=== PATIENT | female | born 1950 | race Caucasian/White ===

== ENCOUNTER 2017-04-23 14:50 | Emergency (ER) | payer MEDICARE, MEDICAID ==
[~2017-04-23] VITALS: Ht 167.6 cm; Wt 51.8 kg
[~2017-04-23 14:50] MED LIST: 1-ME1LIQ PO; HYDR-3533 PO; LISI40TA PO; METH750T2 PO; NAPR500 PO; ZOFR4TAB3 SL
[2017-04-23 14:54] VITALS: BP 222/101; PULSE 68; RESP 20; TEMP 98.6; O2SAT 99
--- NOTE | 2017-04-23 15:13 | PD ---
Physical Exam Time Seen by Provider: 15:10 Narrative 66 y/o female here for evaluation of hypertension. Sent by physician. She does endorse h/a, cp and nausea. Vital signs reviewed. Seen at triage desk. Awaiting bed placement. Data Data Last Documented VS Vital Signs Date Time Temp Pulse Resp B/P Pulse Ox O2 Delivery O2 Flow Rate FiO2 04/23/17 14:54 98.6 68 20 222/101 99 Room Air [facility] Medical Record Reviewed: Yes Supervised Visit with TONEY: Minesh Schuler Apr 23, 2017 15:13
--- NOTE | 2017-04-23 16:37 | RADRPT ---
EXAM DATE/TIME: 04/23/2017 15:58 [facility] COMPARISON: CHEST SINGLE AP, September 25, 2014, 13:10. INDICATIONS : Mid chest discomfort and high blood pressure today. MEDICAL HISTORY : Hypertension. SURGICAL HISTORY : Appendectomy. Tubal ligation.Hysterectomy. ENCOUNTER: Initial ACUITY: 1 day PAIN SCORE: 2/10 LOCATION: Bilateral chest FINDINGS: A single view of the chest demonstrates the lungs to be symmetrically aerated without evidence of mas s, infiltrate or effusion. The cardiomediastinal contours are unremarkable. Osseous structures are intact. CONCLUSION: 1. No acute cardiopulmonary disease. Ifeanyi Lara MD on April 23, 2017 at 16:35 Board Certified Radiologist. This report was verified electronically.
[2017-04-23] MEDS ORDERED: ATOR40TA16 PO (17:57)
[2017-04-23] MEDS ORDERED: AMLO10 PO (17:57)
[2017-04-23] MEDS ORDERED: LISI40TA PO (17:57)
[2017-04-23 18:00] VITALS: BP 214/100; PULSE 69; RESP 17; TEMP 97.8; O2SAT 99
--- NOTE | 2017-04-23 18:01 | PD ---
HPI Chief Complaint: Hypertension Time Seen by Provider: 17:55 Travel History International Travel<30 days: No Contact w/Intl Traveler<30days: No Traveled to known affect area: No History of Present Illness HPI 58-year-old female presents to the emergency department sent by her primary care physician for hypertension. Patient states she went to her appointment today and her blood pressure was notably elevated, 220 systolic. She was instructed to come the emergency department at that time. She states that she is supposed to be on lisinopril and amlodipine. However, there was confusion at the pharmacy and she was taken off of her amlodipine approximately one month ago. Her physician sent her in a new prescription for amlodipine, but she will not pick it up until the morning. The patient states she has a mild headache. She states it is not the worse headache of her life. She reports daily headaches. Patient states that Aleve relieves her headache. Patient also states that she has a pinching in the midsternal chest when she gets hypertension, but denies any at this time. Patient denies any shortness of breath. She states that overall, she feels well. She states that she did not want to come to the emergency department, but her primary care physician told her she needed to come before she had a stroke. PFSH Past Medical History Cancer: No Cardiovascular Problems: Yes (HTN) High Cholesterol: Yes Diminished Hearing: No Endocrine: No Genitourinary: No Hypertension: Yes Immune Disorder: No Insomnia: Yes Musculoskeletal: No Neurologic: Yes Psychiatric: No Reproductive: No Respiratory: No Immunizations Current: Yes ?: Not Menopausal: Yes Past Surgical History Abdominal Surgery: Yes (APPENDECTOMY) Appendectomy: Yes Gynecologic Surgery: Yes (HYSTERECTOMY, LEFT BREAST TUMOR REMOVAL) Hysterectomy: Yes Other Surgery: Yes Social History Alcohol Use: Yes (SOMETIMES WINE) Tobacco Use: No (QUIT 10/18/12) Substance Use: No Allergies-Medications (Allergen,Severity, Reaction): Coded Allergies: Codeine (Verified Allergy, Severe, swelling, 04/23/17) Tetanus Toxoid (Verified Allergy, Severe, Anaphylaxis, 04/23/17) Uncoded Allergies: ARTIFICIAL SWEETNERS (Allergy, Severe, Anaphylaxis, 09/25/14) DIET SODA (Allergy, Severe, swollen, 04/23/17) Reported Meds & Prescriptions Reported Meds & Active Scripts Active Reported Atorvastatin (Atorvastatin Calcium) 40 Mg Tab 40 Mg PO HS Norvasc (Amlodipine Besylate) 10 Mg Tab 10 Mg PO DAILY Lisinopril 40 Mg Tab 40 Mg PO BID Review of Systems Except as stated in HPI: all other systems reviewed are Neg Physical Exam Narrative GENERAL: Well-nourished, well-developed female patient, ambulatory. Afebrile SKIN: Focused skin assessment warm/dry. HEAD: Normocephalic. Atraumatic. EYES: No scleral icterus. No injection or drainage. NECK: Supple, trachea midline. No JVD or lymphadenopathy. CARDIOVASCULAR: Regular rate and rhythm without murmurs, gallops, or rubs. RESPIRATORY: Breath sounds equal bilaterally. No accessory muscle use. Lungs sounds are clear to auscultation. GASTROINTESTINAL: Abdomen soft, non-tender, nondistended. MUSCULOSKELETAL: No cyanosis, or edema. Bilateral upper and lower extremity strength 5/5. All extremities are neurovascularly intact. BACK: Nontender without obvious deformity. No CVA tenderness. Data Data Last Documented VS Vital Signs Date Time Temp Pulse Resp B/P Pulse Ox O2 Delivery O2 Flow Rate FiO2 04/23/17 19:26 61 16 203/89 99 Room Air 04/23/17 18:00 97.8 Orders Electrocardiogram (04/23/17 15:15) Ckmb (Isoenzyme) Profile (04/23/17 15:15) Complete Blood Count With Diff (04/23/17 15:15) Comprehensive Metabolic Panel (04/23/17 15:15) Magnesium (Mg) (04/23/17 15:15) Prothrombin Time / Inr (Pt) (04/23/17 15:15) Act Partial Throm Time (Ptt) (04/23/17 15:15) Troponin I (04/23/17 15:15) Chest, Single Ap (04/23/17 15:15) Amlodipine (Norvasc) (04/23/17 18:00) CKMB (04/23/17 18:41) CKMB% (04/23/17 18:41) Labs Laboratory Tests Test 04/23/17 18:41 White Blood Count 7.8 TH/MM3 Red Blood Count 4.43 MIL/MM3 Hemoglobin 13.1 GM/DL Hematocrit 40.4 % Mean Corpuscular Volume 91.3 FL Mean Corpuscular Hemoglobin 29.6 PG Mean Corpuscular Hemoglobin 32.4 % Concent Red Cell Distribution Width 13.4 % Platelet Count 190 TH/MM3 Mean Platelet Volume 8.7 FL Neutrophils (%) (Auto) 66.8 % Lymphocytes (%) (Auto) 23.2 % Monocytes (%) (Auto) 7.8 % Eosinophils (%) (Auto) 1.8 % Basophils (%) (Auto) 0.4 % Neutrophils # (Auto) 5.2 TH/MM3 Lymphocytes # (Auto) 1.8 TH/MM3 Monocytes # (Auto) 0.6 TH/MM3 Eosinophils # (Auto) 0.1 TH/MM3 Basophils # (Auto) 0.0 TH/MM3 CBC Comment DIFF FINAL Differential Comment Prothrombin Time 10.9 SEC Prothromb Time International 1.0 RATIO Ratio Activated Partial 27.4 SEC Thromboplast Time Sodium Level 141 MEQ/L Potassium Level 3.6 MEQ/L Chloride Level 109 MEQ/L Carbon Dioxide Level 27.5 MEQ/L Anion Gap 5 MEQ/L Blood Urea Nitrogen 13 MG/DL Creatinine 0.72 MG/DL Estimat Glomerular Filtration 81 ML/MIN Rate Random Glucose 83 MG/DL Calcium Level 9.2 MG/DL Magnesium Level 2.1 MG/DL Total Bilirubin 0.4 MG/DL Aspartate Amino Transf 11 U/L (AST/SGOT) Alanine Aminotransferase 16 U/L (ALT/SGPT) Alkaline Phosphatase 95 U/L Total Creatine Kinase 106 U/L Creatine Kinase MB 1.3 NG/ML Troponin I LESS THAN 0.02 NG/ML Total Protein 7.7 GM/DL Albumin 3.8 GM/DL MDM Medical Decision Making Medical Screen Exam Complete: Yes Emergency Medical Condition: Yes Medical Record Reviewed: Yes Interpretation(s) Last Impressions Chest X-Ray 04/23/17 1515 Signed Impressions: Service Date/Time: April 15:58 - CONCLUSION: 1. No acute cardiopulmonary disease. Ifeanyi Lara MD Differential Diagnosis Hypertension versus electrolyte abnormality versus ACS Narrative Course 66-year-old female presents to the emergency department for evaluation of hypertension but she was sent by her primary care physician. She reports a chronic mild headache. She denies any chest pain at this time. Patient has been out of her amlodipine for the past month. Patient is given amlodipine 10 mg by mouth. CBC, BMP, CK, troponin, magnesium, PTT, PT/INR, chest x-ray are ordered and pending. EKG shows SR, HR 60, no acute ST changes. Chest x-ray shows no acute disease. CBC is unremarkable. BMP shows no acute abnormality. CK is 106. Troponin is less than 0.02. Magnesium is 2.1. Coags are unremarkable. Blood pressure is trending down. Blood pressure before discharge is 197/88. She has no complaints and wishes to go home. She continues to deny chest pain. She states her headache is better. Patient is instructed to take her lisinopril and amlodipine and follow-up with her primary care physician. She verbalizes agreement and understanding. The patient was discharged in stable condition with instructions, including return instructions and follow up instructions. Diagnosis Primary Impression: Hypertension Qualified Code: I10 - Essential hypertension Referrals: Primary Care Physician call for appointment Patient Instructions: Chronic Hypertension (ED), General Instructions Additional Instructions: Continue lisinopril and amlodipine as prescribed. Follow-up with your primary care physician. Return to the emergency department for any acute worsening of symptoms. Med/Other Pt SpecificInfo: No Change to Meds Disposition: 01 DISCHARGE HOME Condition: Stable Halley Finley CARMELITA Apr 23, 2017 18:01
[2017-04-23 18:59] LABS: AUTOMATED NEUTROPHIL # 5.2 TH/MM3 (1.8-7.7); BASOPHIL % 0.4 % (0.0-2.0); EOSINOPHIL # 0.1 TH/MM3 (0-0.4); EOSINOPHIL % 1.8 % (0.0-4.0); HEMATOCRIT 40.4 % (35.0-46.0); HEMO FLAGS DIFF FINAL; LYMPH % 23.2 % (9.0-44.0); LYMPHOCYTE # 1.8 TH/MM3 (1.0-4.8); MEAN CELL VOLUME 91.3 FL (80.0-100.0); MEAN CORPUSCULAR HEMOGLOBIN 29.6 PG (27.0-34.0); MEAN CORPUSCULAR HGB CONC 32.4 % (32.0-36.0); MONO % 7.8 % (0.0-8.0); NEUT % 66.8 % (16.0-70.0); PLATELET COUNT 190 TH/MM3 (150-450); RED BLOOD COUNT 4.43 MIL/MM3 (4.00-5.30); RED CELL DISTRIBUTION WIDTH 13.4 % (11.6-17.2); WHITE BLOOD COUNT 7.8 TH/MM3 (4.0-11.0)
[2017-04-23 19:14] LABS: APTT (PATIENT) 27.4 SEC (24.3-30.1); PROTHROMBIN TIME - PATIENT 10.9 SEC (9.8-11.6)
[2017-04-23 19:26] VITALS: BP 203/89; PULSE 61; RESP 16; O2SAT 99
[2017-04-23 19:43] LABS: ANION GAP 5 MEQ/L (5-15); AST (GOT) 11 U/L (15-37); BICARBONATE 27.5 MEQ/L (21.0-32.0); BLOOD UREA NITROGEN 13 MG/DL (7-18); CHLORIDE 109 MEQ/L (98-107); GLOMERULAR FILTRATION RATE 81 ML/MIN (>89); MAGNESIUM 2.1 MG/DL (1.5-2.5); POTASSIUM 3.6 MEQ/L (3.5-5.1); SODIUM (NA) 141 MEQ/L (136-145)
[2017-04-23 19:44] LABS: ALT (GPT) 16 U/L (10-53)
[2017-04-23 19:49] LABS: ALKALINE PHOSPHATASE 95 U/L (45-117); CREATINE KINASE 106 U/L (26-192); TOTAL BILIRUBIN ADULT 0.4 MG/DL (0.2-1.0)
[2017-04-23 20:01] LABS: CKMB 1.3 NG/ML (0.5-3.6)
--- NOTE | 2017-04-25 11:07 | EKG ---
Date Performed: 04/23/2017 Time Performed: 16:18:23 PTAGE: 66 years EKG: Sinus rhythm INCOMPLETE RIGHT BUNDLE BRANCH BLOCK BORDERLINE ECG PREVIOUS TRACING : 09/25/2014 12.52 DOCTOR: Jake Gordillo Interpretating Date/Time 04/25/2017 10:58:20
== END 2017-04-23 21:04 | disposition home or self-care (01) ==
LOC: NEPE 14:50
DX: I10 Essential (primary) hypertension (principal); R51 Headache; E78.00 Pure hypercholesterolemia, unspecified; Z79.899 Other long term (current) drug therapy
CPT/HCPCS: 71010; 80053; 82550; 82552; 83735; 84484; 85025; 85610; 85730; 93005; 99285

== ENCOUNTER 2017-09-27 12:44 | Inpatient (IN) | payer OTHER, MEDICARE ==
[~2017-09-27] VITALS: Ht 167.6 cm; Wt 50.0 kg
[2017-09-27] VITALS (9 sets, daily range): BP systolic 112–135; BP diastolic 56–86; PULSE 71–100; RESP 16–22; TEMP 98.7–100.7; O2SAT 96–98
[~2017-09-27 12:44] MED LIST changes: -1-ME1LIQ PO; +AMLO10 PO; +ATOR40TA16 PO; -HYDR-3533 PO; -METH750T2 PO; -NAPR500 PO; -ZOFR4TAB3 SL
--- NOTE | 2017-09-27 14:26 | PD ---
HPI Chief Complaint: Flank/Kidney Pain Time Seen by Provider: 14:10 Travel History International Travel<30 days: No Contact w/Intl Traveler<30days: No Traveled to known affect area: No History of Present Illness HPI 66-year-old female presents to the emergency department for evaluation of bilateral flank pain, fever, headache, intermittent left chest pain that started this morning. She states she not feel well yesterday, but her symptoms worsened upon wakening this morning. Patient denies any shortness of breath. She reports vomiting. No diarrhea or constipation. She denies any urinary symptoms. No dysuria, frequency, urgency. Patient does report history of nephrolithiasis, she states that she does not currently have any issues with this. Patient took Tylenol last night, but has not taken anything for fever this morning. She has history of hypertension, rheumatoid arthritis, and appendectomy. Patient rates the pain and bilateral flank area 10/10, throbbing , sharp, aching without radiation. Moderate severity. No exacerbating or alleviating factors. PFSH Past Medical History Arthritis: Yes (RA) Cancer: No Cardiovascular Problems: Yes (HTN) High Cholesterol: Yes Diminished Hearing: No Endocrine: No Genitourinary: No Hypertension: Yes Immune Disorder: No Insomnia: Yes Kidney Stones: Yes Musculoskeletal: No Neurologic: Yes Psychiatric: No Reproductive: No Respiratory: No Immunizations Current: Yes ?: Not Menopausal: Yes Past Surgical History Abdominal Surgery: Yes (APPENDECTOMY) Appendectomy: Yes Gynecologic Surgery: Yes (HYSTERECTOMY, LEFT BREAST TUMOR REMOVAL) Hysterectomy: Yes Other Surgery: Yes Family History Family Myocardial Infarction: Yes (MOTHER- CABG @ 68 - SHORTLY AFTER) Social History Alcohol Use: Yes (SOMETIMES WINE) Tobacco Use: No Substance Use: No Allergies-Medications (Allergen,Severity, Reaction): Coded Allergies: codeine (Unverified Allergy, Severe, swelling, 09/27/17) tetanus toxoid, adsorbed (Unverified Allergy, Severe, Anaphylaxis, ) Uncoded Allergies: ARTIFICIAL SWEETNERS (Allergy, Severe, Anaphylaxis, 09/25/14) DIET SODA (Allergy, Severe, swollen, 04/23/17) Reported Meds & Prescriptions Reported Meds & Active Scripts Active Reported Atorvastatin (Atorvastatin Calcium) 40 Mg Tab 40 Mg PO HS Norvasc (Amlodipine Besylate) 10 Mg Tab 10 Mg PO DAILY Lisinopril 40 Mg Tab 40 Mg PO BID Review of Systems Except as stated in HPI: all other systems reviewed are Neg Physical Exam Narrative GENERAL: Well-nourished, well-developed female patient, moaning in pain. Temp 100.4. SKIN: Focused skin assessment warm/dry. HEAD: Normocephalic. Atraumatic. ENT: Mucosa pink and moist. No erythema or exudates. No uvular edema. No uvular , palatal, or tonsillar deviation. Airway patent. Nasal turbinates appear normal without nasal blood, purulent drainage or septal hematoma. Bilateral tympanic membranes are clear without erythema or perforation. EYES: No scleral icterus. No injection or drainage. NECK: Supple, trachea midline. No JVD or lymphadenopathy. CARDIOVASCULAR: Regular rate and rhythm without murmurs, gallops, or rubs. RESPIRATORY: Breath sounds equal bilaterally. No accessory muscle use. Lungs sounds are clear to auscultation. GASTROINTESTINAL: Abdomen soft, non-tender, nondistended. No abdominal tenderness to palpation. MUSCULOSKELETAL: No cyanosis, or edema. BACK: Nontender without obvious deformity. Bilateral CVA tenderness. Data Data Last Documented VS Vital Signs Date Time Temp Pulse Resp B/P (MAP) Pulse Ox O2 Delivery O2 Flow Rate FiO2 09/27/17 14:46 16 97 Room Air 09/27/17 12:45 100.4 100 Orders Orders Electrocardiogram (09/27/17 14:16) Complete Blood Count With Diff (09/27/17 14:16) Comprehensive Metabolic Panel (09/27/17 14:16) Prothrombin Time / Inr (Pt) (09/27/17 14:16) Act Partial Throm Time (Ptt) (09/27/17 14:16) Lactic Acid Sepsis Protocol (09/27/17 14:16) Magnesium (Mg) (09/27/17 14:16) Lipase (09/27/17 14:16) Ckmb (Isoenzyme) Profile (09/27/17 14:16) Troponin I (09/27/17 14:16) Urinalysis - C+S If Indicated (09/27/17 14:16) Influenzae A/B Antigen (09/27/17 14:16) Blood Culture (09/27/17 14:16) Chest, Single Ap (09/27/17 14:16) Blood Glucose (09/27/17 14:16) Ecg Monitoring (09/27/17 14:16) Iv Access Insert/Monitor (09/27/17 14:16) Oximetry (09/27/17 14:16) Oxygen Administration (09/27/17 14:16) Ct Abd/Pel W/O Iv Contrast (09/27/17 14:16) Ketorolac Inj (Toradol Inj) (09/27/17 14:30) Sodium Chlor 0.9% 1000 Ml Inj (Ns 1000 M (09/27/17 14:30) Cath For Specimen (09/27/17 14:16) Aspirin Chew (Aspirin Chew) (09/27/17 16:45) Urine Culture (09/27/17 16:30) Ceftriaxone Inj (Rocephin Inj) (09/27/17 17:15) Morphine Inj (Morphine Inj) (09/27/17 17:15) Ondansetron Inj (Zofran Inj) (09/27/17 17:15) Admit Order (Ed Use Only) (09/27/17 17:23) Labs Laboratory Tests Test 09/27/17 14:35 09/27/17 16:30 White Blood Count 5.0 TH/MM3 Red Blood Count 4.02 MIL/MM3 Hemoglobin 12.6 GM/DL Hematocrit 36.8 % Mean Corpuscular Volume 91.5 FL Mean Corpuscular Hemoglobin 31.4 PG Mean Corpuscular Hemoglobin Concent 34.3 % Red Cell Distribution Width 13.5 % Platelet Count 163 TH/MM3 Mean Platelet Volume 8.7 FL Neutrophils (%) (Auto) 85.5 % Lymphocytes (%) (Auto) 3.4 % Monocytes (%) (Auto) 10.7 % Eosinophils (%) (Auto) 0.0 % Basophils (%) (Auto) 0.4 % Neutrophils # (Auto) 4.3 TH/MM3 Lymphocytes # (Auto) 0.2 TH/MM3 Monocytes # (Auto) 0.5 TH/MM3 Eosinophils # (Auto) 0.0 TH/MM3 Basophils # (Auto) 0.0 TH/MM3 CBC Comment DIFF FINAL Differential Comment Prothrombin Time 10.5 SEC Prothromb Time International Ratio 1.0 RATIO Activated Partial Thromboplast Time 26.3 SEC Blood Urea Nitrogen 17 MG/DL Creatinine 1.03 MG/DL Random Glucose 94 MG/DL Total Protein 7.8 GM/DL Albumin 3.7 GM/DL Calcium Level 8.9 MG/DL Magnesium Level 2.2 MG/DL Alkaline Phosphatase 78 U/L Aspartate Amino Transf (AST/SGOT) 11 U/L Alanine Aminotransferase (ALT/SGPT) 16 U/L Total Bilirubin 0.3 MG/DL Sodium Level 139 MEQ/L Potassium Level 3.8 MEQ/L Chloride Level 107 MEQ/L Carbon Dioxide Level 25.0 MEQ/L Anion Gap 7 MEQ/L Estimat Glomerular Filtration Rate 53 ML/MIN Lactic Acid Level 0.8 mmol/L Total Creatine Kinase 78 U/L Troponin I 0.06 NG/ML Lipase 124 U/L Urine Color YELLOW Urine Turbidity CLEAR Urine pH 6.5 Urine Specific [place] 1.011 Urine Protein TRACE mg/dL Urine Glucose (UA) NEG mg/dL Urine Ketones 10 mg/dL Urine Occult Blood SMALL Urine Nitrite NEG Urine Bilirubin NEG Urine Urobilinogen LESS THAN 2.0 MG/DL Urine Leukocyte Esterase LARGE Urine RBC 6 /hpf Urine WBC 27 /hpf Urine Squamous Epithelial Cells 1 /hpf Urine Mucus FEW /lpf Microscopic Urinalysis Comment CATH-CULTURE IND MDM Medical Decision Making Medical Screen Exam Complete: Yes Emergency Medical Condition: Yes Medical Record Reviewed: Yes Interpretation(s) Last Impressions Chest X-Ray 09/27/171415 Signed Impressions: Service Date/Time: Wednesday, September 27, 2017 14:25 - CONCLUSION: Normal examination. Jake Gurrola MD Abdomen/Pelvis CT [id number]/27/171415 Signed Impressions: Service Date/Time: Wednesday, September 27, 2017 16:00 - CONCLUSION: Large left renal cyst otherwise unremarkable CT scan of the abdomen and pelvis. Surgical throughout the lower retroperitoneum and pelvis. No concerning mass Jake Gurrola MD Differential Diagnosis UTI versus pyelonephritis versus pneumonia versus septic calculi versus nephrolithiasis versus influenza Narrative Course 66-year-old female presents to the emergency department for evaluation of bilateral flank pain, fever, headache. Patient also reports some left sided chest pain as well. EKG, CBC, CMP, lactic acid, magnesium, lipase, CK, troponin , PTT, PT/INR, UA, influenza, blood cultures 2 are ordered and pending. Chest x-ray and CT abdomen/pelvis without contrast are ordered and pending. Patient is given normal saline 1 L IV bolus, Toradol 30 mg IV. EKG shows SR, HR 87, no acute ST changes. CBC shows no acute abnormality. CMP shows no acute abnormality. Lipase is 124. Magnesium is 2.2. CK is 78. Troponin is 0.06. Lactic acid is 0.8. UA shows large leukocyte esterase, 27 WBC. Coags are unremarkable. Influenza is negative. Chest x-ray is normal. CT abdomen/pelvis shows a large left renal cyst, otherwise unremarkable CT scan of the abdomen and pelvis. Patient is given aspirin 162 mg by mouth due to elevated troponin. Patient is given Rocephin 1 g IV for UTI. Due to elevated troponin, atypical chest pain, patient will be admitted for further evaluation. [facility] is paged for admission. Dr. Brito accepted admission. Diagnosis Primary Impression: Atypical chest pain Additional Impressions: Elevated troponin UTI (urinary tract infection) Qualified Codes: N30.01 - Acute cystitis with hematuria Admitting Information Admitting Physician Requests: Halley Koch Sep 27, 2017 14:26
[2017-09-27] MEDS ORDERED: SODIUM CHLOR 0.9% 1000 ML INJ 1,000 ML IV ONE (14:30)
[2017-09-27] MEDS ORDERED: KETOROLAC TROMETHAMINE 30 MG/ML (IVP) VIAL IV PUSH ONE (14:30)
--- NOTE | 2017-09-27 14:48 | RADRPT ---
EXAM DATE/TIME: 09/27/2017 14:25 [facility] COMPARISON: CHEST SINGLE AP, April 23, 2017, 15:58. INDICATIONS : Fever. MEDICAL HISTORY : Hypertension. SURGICAL HISTORY : Tubal ligation. Appendectomy. ENCOUNTER: Initial ACUITY: 1 day PAIN SCORE: 0/10 LOCATION: Bilateral chest FINDINGS: A single view of the chest demonstrates the lungs to be symmetrically aerated without evidence of mas s, infiltrate or effusion. The cardiomediastinal contours are unremarkable. Osseous structures are intact. CONCLUSION: Normal examination. Jake Gurrola MD on September 27, 2017 at 14:46 Board Certified Radiologist. This report was verified electronically.
[2017-09-27 15:09] LABS: AUTOMATED NEUTROPHIL # 4.3 TH/MM3 (1.8-7.7); BASOPHIL % 0.4 % (0.0-2.0); HEMATOCRIT 36.8 % (35.0-46.0); HEMO FLAGS DIFF FINAL; LYMPH % 3.4 % (9.0-44.0); LYMPHOCYTE # 0.2 TH/MM3 (1.0-4.8); MEAN CELL VOLUME 91.5 FL (80.0-100.0); MEAN CORPUSCULAR HEMOGLOBIN 31.4 PG (27.0-34.0); MEAN CORPUSCULAR HGB CONC 34.3 % (32.0-36.0); MONO % 10.7 % (0.0-8.0); NEUT % 85.5 % (16.0-70.0); PLATELET COUNT 163 TH/MM3 (150-450); RED BLOOD COUNT 4.02 MIL/MM3 (4.00-5.30); RED CELL DISTRIBUTION WIDTH 13.5 % (11.6-17.2)
[2017-09-27 15:20] LABS: APTT (PATIENT) 26.3 SEC (24.3-30.1); PROTHROMBIN TIME - PATIENT 10.5 SEC (9.8-11.6)
[2017-09-27 15:22] LABS: ALT (GPT) 16 U/L (10-53); ANION GAP 7 MEQ/L (5-15); AST (GOT) 11 U/L (15-37); BLOOD UREA NITROGEN 17 MG/DL (7-18); CHLORIDE 107 MEQ/L (98-107); GLOMERULAR FILTRATION RATE 53 ML/MIN (>89); MAGNESIUM 2.2 MG/DL (1.5-2.5); POTASSIUM 3.8 MEQ/L (3.5-5.1); SODIUM (NA) 139 MEQ/L (136-145)
[2017-09-27 15:26] LABS: ALKALINE PHOSPHATASE 78 U/L (45-117); TOTAL BILIRUBIN ADULT 0.3 MG/DL (0.2-1.0)
[2017-09-27 15:28] LABS: CREATINE KINASE 78 U/L (26-192)
--- NOTE | 2017-09-27 16:21 | RADRPT ---
EXAM DATE/TIME: 09/27/2017 16:00 [facility] COMPARISON: CT ABDOMEN & PELVIS W/O CONTRAST, March 20, 2016, 11:29. INDICATIONS : Abdominal pain, nausea. ORAL CONTRAST: No oral contrast ingested. RADIATION DOSE: 3.13 CTDIvol (mGy) MEDICAL HISTORY : Cardiovascular disease. Hypertension. SURGICAL HISTORY : Appendectomy. Hysterectomy. ENCOUNTER: Initial ACUITY: 1 day PAIN SCALE: 7/10 LOCATION: Bilateral flank TECHNIQUE: Volumetric scanning of the abdomen and pelvis was performed. Using automated exposure control and ad justment of the mA and/or kV according to patient size, radiation dose was kept as low as reasonably achievable to obtain optimal diagnostic quality images. DICOM format image data is available electro nically for review and comparison. FINDINGS: LOWER LUNGS: The visualized lower lungs are clear. LIVER: Homogeneous density without lesion. There is no dilation of the biliary tree. No calcified gallston es. SPLEEN: Normal size without lesion. PANCREAS: Within normal limits. KIDNEYS: Normal in size and shape. There is no mass, stone, or hydronephrosis except for a large cyst upper p ole left kidney measuring 3.9 x 4.7 cm across. ADRENAL GLANDS: Within normal limits. VASCULAR: There is no aortic aneurysm. BOWEL/MESENTERY: The stomach, small bowel, and colon demonstrate no acute abnormality. There is no free intraperitone al air or fluid. ABDOMINAL WALL: Within normal limits. RETROPERITONEUM: There is no lymphadenopathy. Scattered surgical amarjit BLADDER: No wall thickening or mass. REPRODUCTIVE: Within normal limits. INGUINAL: There is no lymphadenopathy or hernia. MUSCULOSKELETAL: Within normal limits for patient age. CONCLUSION: Large left renal cyst otherwise unremarkable CT scan of the abdomen and pelvis. Surgical throughout the lower retroperitoneum and pelvis. No concerning mass Jake Gurrola MD on September 27, 2017 at 16:18 Board Certified Radiologist. This report was verified electronically.
[2017-09-27] MEDS ORDERED: ASPIRIN 81 MG CHEW TAB CHEW ONE (16:45)
[2017-09-27 17:00] LABS: BLOOD, URINE SMALL (NEG); GLUCOSE,URINE NEG (NEG); KETONE, URINE 10 mg/dL (NEG); MUCUS URINE FEW /lpf (OCC); NITRITE,URINE NEG (NEG); PH, URINE 6.5 (5.0-8.5); SQUAMOUS EPITHELIAL CELL URINE 1 /hpf (0-5); URINE COLOR YELLOW (YELLW/STRAW)
[2017-09-27 17:03] LABS: COMMENT (UR) CATH-CULTURE IND; CULTURE IF INDICATED CATH CULTURE IND
[2017-09-27] MEDS ORDERED: MORPHINE SULFATE 4 MG/ML INJ IV PUSH ONE (17:15)
[2017-09-27] MEDS ORDERED: ONDANSETRON HCL 4 MG/2 ML VIAL IV PUSH ONE (17:15)
[2017-09-27] MEDS ORDERED: cefTRIAXone INJ 1,000 MG in SODIUM CHLORIDE 0.9% INJ 100 ML IV ONE (17:15)
--- NOTE | 2017-09-27 17:53 | HHI.HP ---
[facility] G[facility] Ochoa Admission Diagnosis atypical chest pain, elevated troponin, UTI Diagnoses: Chief Complaint: chest pain Travel History International Travel<30 Days: No Contact w/Intl Traveler <30 Da: No Traveled to Known Affected Are: No History of Present Illness 66-year-old female with PMH of HTN, RA, h/o nephrolithiasis presents to the emergency department for evaluation of bilateral flank pain, fever, headache, intermittent left chest pain that started this morning. She states she not feel well yesterday, but her symptoms worsened upon wakening this morning. Chest montoya was noted early in the morning today before taking her morning meds for BP. Patient also experienced n/v/ and diaphoresis. Patient denies any shortness of breath. She reports nausea vomiting associated with chest pain. No diarrhea or constipation. She denies any urinary symptoms. No dysuria, frequency, urgency. Patient does report history of nephrolithiasis, she states that she does not currently have any issues with this. Patient took Tylenol last night, but has not taken anything for fever this morning. She has history of hypertension, rheumatoid arthritis, and appendectomy. Patient rates the pain and bilateral flank area 10/10, throbbing, sharp, aching without radiation. Moderate severity. No exacerbating or alleviating factors. Review of Systems Except as stated in HPI: all other systems reviewed are Neg Past Family Social History Past Medical History HTN, RA, nephrolithiasis Past Surgical History Appendicitis Hysterectomy Left elbow surgery Reported Medications Reported Meds & Active Scripts Active Reported Atorvastatin (Atorvastatin Calcium) 40 Mg Tab 40 Mg PO HS Norvasc (Amlodipine Besylate) 10 Mg Tab 10 Mg PO DAILY Lisinopril 40 Mg Tab 40 Mg PO BID Allergies: Coded Allergies: codeine (Unverified Allergy, Severe, swelling, 09/27/17) tetanus toxoid, adsorbed (Unverified Allergy, Severe, Anaphylaxis, ) Uncoded Allergies: ARTIFICIAL SWEETNERS (Allergy, Severe, Anaphylaxis, 09/25/14) DIET SODA (Allergy, Severe, swollen, 04/23/17) Family History Mother heart problems, CABG at age of 70 afterwards Cancer runs in fathers family Social History Tobacco 1 ppd quit 3 years ago, 15 years No EtOH or illicit drug use Physical Exam Vital Signs Vital Signs Date Time Temp Pulse Resp B/P (MAP) Pulse Ox O2 Delivery O2 Flow Rate FiO2 09/27/17 17:30 71 16 112/58 (76) 97 Nasal Cannula 2.00 09/27/17 14:46 16 97 Room Air 09/27/17 14:46 97 Room Air 09/27/17 12:45 100.4 100 18 135/63 (87) 96 Physical Exam GENERAL: This is a frail 66 well-nourished, well-developed patient, in no apparent distress. SKIN: No rashes, ecchymoses or lesions. Cool and dry. HEAD: Atraumatic. Normocephalic. No temporal or scalp tenderness. EYES: Pupils equal round and reactive. Extraocular motions intact. No scleral icterus. No injection or drainage. ENT: Nose without bleeding, purulent drainage or septal hematoma. Throat without erythema, tonsillar hypertrophy or exudate. Uvula midline. Airway patent. NECK: Trachea midline. No JVD or lymphadenopathy. Supple, nontender, no meningeal signs. CARDIOVASCULAR: Regular rate and rhythm without murmurs, gallops, or rubs. RESPIRATORY: Clear to auscultation. Breath sounds equal bilaterally. No wheezes , rales, or rhonchi. GASTROINTESTINAL: Abdomen soft, non-tender, nondistended. No hepato-splenomegaly , or palpable masses. No guarding. MUSCULOSKELETAL: Extremities without clubbing, cyanosis, or edema. No joint tenderness, effusion, or edema noted. No calf tenderness. Negative Homans sign bilaterally. NEUROLOGICAL: Awake and alert. Cranial nerves II through XII intact. Motor and sensory grossly within normal limits. Five out of 5 muscle strength in all muscle groups. Normal speech. Laboratory Laboratory Tests Test 09/27/17 14:35 09/27/17 16:30 White Blood Count 5.0 Red Blood Count 4.02 Hemoglobin 12.6 Hematocrit 36.8 Mean Corpuscular Volume 91.5 Mean Corpuscular Hemoglobin 31.4 Mean Corpuscular Hemoglobin Concent 34.3 Red Cell Distribution Width 13.5 Platelet Count 163 Mean Platelet Volume 8.7 Neutrophils (%) (Auto) 85.5 Lymphocytes (%) (Auto) 3.4 Monocytes (%) (Auto) 10.7 Eosinophils (%) (Auto) 0.0 Basophils (%) (Auto) 0.4 Neutrophils # (Auto) 4.3 Lymphocytes # (Auto) 0.2 Monocytes # (Auto) 0.5 Eosinophils # (Auto) 0.0 Basophils # (Auto) 0.0 CBC Comment DIFF FINAL Differential Comment Prothrombin Time 10.5 Prothromb Time International Ratio 1.0 Activated Partial Thromboplast Time 26.3 Blood Urea Nitrogen 17 Creatinine 1.03 Random Glucose 94 Total Protein 7.8 Albumin 3.7 Calcium Level 8.9 Magnesium Level 2.2 Alkaline Phosphatase 78 Aspartate Amino Transf (AST/SGOT) 11 Alanine Aminotransferase (ALT/SGPT) 16 Total Bilirubin 0.3 Sodium Level 139 Potassium Level 3.8 Chloride Level 107 Carbon Dioxide Level 25.0 Anion Gap 7 Estimat Glomerular Filtration Rate 53 Lactic Acid Level 0.8 Total Creatine Kinase 78 Troponin I 0.06 Lipase 124 Urine Color YELLOW Urine Turbidity CLEAR Urine pH 6.5 Urine Specific [place] 1.011 Urine Protein TRACE Urine Glucose (UA) NEG Urine Ketones 10 Urine Occult Blood SMALL Urine Nitrite NEG Urine Bilirubin NEG Urine Urobilinogen LESS THAN 2.0 Urine Leukocyte Esterase LARGE Urine RBC 6 Urine WBC 27 Urine Squamous Epithelial Cells 1 Urine Mucus FEW Microscopic Urinalysis Comment CATH-CULTURE IND Date/Time Source Procedure Growth Status 09/27/17 14:40 Blood Peripheral Aerobic Blood Culture Pending Received 09/27/17 14:40 Blood Peripheral Anaerobic Blood Culture Pending Received 09/27/17 14:34 Nasal Aspirate Influenza Types A,B Antigen (BERONICA) - Final NEGATIVE FOR FLU A AND B ANTIGEN.... Complete 09/27/17 16:30 Urine Catheterized Urine Urine Culture Pending Received Result Diagram: 09/27/17 1435 09/27/17 1435 Imaging Last Impressions Chest X-Ray 09/27/17 1416 Signed Impressions: Service Date/Time: Wednesday, September 27, 2017 14:25 - CONCLUSION: Normal examination. Jake Gurrola MD Abdomen/Pelvis CT 09/27/171415 Signed Impressions: Service Date/Time: Wednesday, September 27, 2017 16:00 - CONCLUSION: Large left renal cyst otherwise unremarkable CT scan of the abdomen and pelvis. Surgical throughout the lower retroperitoneum and pelvis. No concerning mass MD Terrie Egan VTE Risk Assessment Caprinebony VTE Risk Assessment: Mod/High Risk (score >= 2) Caprini Risk Assessment Model Point Value = 1 Point Value = 2 Point Value = 3 Point Value = 5 Age 41-60 Minor surgery BMI > 25 kg/m2 Swollen legs Varicose veins or History of unexplained or recurrent spontaneous Oral contraceptives or hormone replacement Sepsis (< 1 month) Serious lung disease, including pneumonia (< 1 month) Abnormal pulmonary function Acute myocardial infarction Congestive heart failure (< 1 month) History of inflammatory bowel disease Medical patient at bed rest Age 61-74 Arthroscopic surgery Major open surgery (> 45 min) Laparoscopic surgery (> 45 min) Malignancy Confined to bed (> 72 hours) Immobilizing plaster cast Central venous access Age >= 75 History of VTE Family history of VTE Factor V Leiden Prothrombin [id number] Lupus anticoagulant Anticardiolipin antibodies Elevated serum homocysteine Heparin-induced thrombocytopenia Other congenital or acquired thrombophilia Stroke (< 1 month) Elective arthroplasty Hip, pelvis, or leg fracture Acute spinal cord injury (< 1 month) Prophylaxis Regimen Total Risk Factor Score Risk Level Prophylaxis Regimen 0-1 Low Early ambulation 2 Moderate Order ONE of the following: *Sequential Compression Device (SCD) *Heparin 5000 units SQ BID 3-4 Higher Order ONE of the following medications: *Heparin 5000 units SQ TID *Enoxaparin/Lovenox 40 mg SQ daily (WT < 150 kg, CrCl > 30 mL/min) *Enoxaparin/Lovenox 30 mg SQ daily (WT < 150 kg, CrCl > 10-29 mL/min) *Enoxaparin/Lovenox 30 mg SQ BID (WT < 150 kg, CrCl > 30 mL/min) AND/OR *Sequential Compression Device (SCD) 5 or more Highest Order ONE of the following medications: *Heparin 5000 units SQ TID (Preferred with Epidurals) *Enoxaparin/Lovenox 40 mg SQ daily (WT < 150 kg, CrCl > 30 mL/min) *Enoxaparin/Lovenox 30 mg SQ daily (WT < 150 kg, CrCl > 10-29 mL/min) *Enoxaparin/Lovenox 30 mg SQ BID (WT < 150 kg, CrCl > 30 mL/min) AND *Sequential Compression Device (SCD) Assessment and Plan Assessment and Plan 66-year-old female presents to the emergency department for evaluation of bilateral flank pain, fever/ chills, left sided chest pain. Atypical chest pain Elevated troponin 0.06 on admission trend UTI (urinary tract infection) Moderate calorie protein malnutrition BMI of 17.8. Will order prealbumin. Encourage Po intake. Will ass ensure to diet EKG reviewed shows SR, HR 87, no acute ST changes. CT abd with large left renal cyst Urine and blood cultures are pending Received Rocephin, continue Rocephin IV Received 165 mg po ASA in the ED. Continue ASA 81 mg po. Check a1c, lipid profile. Omi trops Morphine Iv prn for pain Received bolus VS in the ED, continue IVF . Monitor VS DVT ppx SCD/TEDs/lovenox Tasha Brito MD Sep 27, 2017 17:53
[2017-09-27] MEDS ORDERED: TEMAZEPAM 15 MG CAP PO PRN (18:00)
[2017-09-27] MEDS: ENOXAPARIN SODIUM 40 MG/0.4 ML SYRINGE SQ SCH (18:00)
[2017-09-27] MEDS ORDERED: MORPHINE SULFATE 2 MG/ML INJ SQ PRN (18:00)
[2017-09-27] MEDS ORDERED: LACTULOSE SYRUP 20 GM/30 ML CUP PO PRN (18:00)
[2017-09-27] MEDS ORDERED: SODIUM CHLORIDE 0.9% FLUSH 10 ML FLUSH IV FLUSH PRN (18:00)
[2017-09-27] MEDS ORDERED: cefTRIAXone INJ 1,000 MG in SODIUM CHLORIDE 0.9% INJ 100 ML IV SCH ×2 (18:00→18:30)
[2017-09-27] MEDS ORDERED: SENNOSIDES 8.6 MG TAB PO PRN (18:00)
[2017-09-27] MEDS ORDERED: BISACODYL 10 MG SUPP RECTAL PRN (18:00)
[2017-09-27] MEDS ORDERED: NALOXONE HCL 0.4 MG/ML AMP IV PUSH PRN (18:00)
[2017-09-27] MEDS ORDERED: MAGNESIUM HYDROXIDE SUSP 30 ML CUP PO PRN (18:00)
--- NOTE | 2017-09-27 18:10 | PD ---
Data Data Last Documented VS Vital Signs Date Time Temp Pulse Resp B/P (MAP) Pulse Ox O2 Delivery O2 Flow Rate FiO2 09/27/17 14:46 16 97 Room Air 09/27/17 12:45 100.4 100 Orders Orders Electrocardiogram (09/27/17 14:16) Complete Blood Count With Diff (09/27/17 14:16) Comprehensive Metabolic Panel (09/27/17 14:16) Prothrombin Time / Inr (Pt) (09/27/17 14:16) Act Partial Throm Time (Ptt) (09/27/17 14:16) Lactic Acid Sepsis Protocol (09/27/17 14:16) Magnesium (Mg) (09/27/17 14:16) Lipase (09/27/17 14:16) Ckmb (Isoenzyme) Profile (09/27/17 14:16) Troponin I (09/27/17 14:16) Urinalysis - C+S If Indicated (09/27/17 14:16) Influenzae A/B Antigen (09/27/17 14:16) Blood Culture (09/27/17 14:16) Chest, Single Ap (09/27/17 14:16) Blood Glucose (09/27/17 14:16) Ecg Monitoring (09/27/17 14:16) Iv Access Insert/Monitor (09/27/17 14:16) Oximetry (09/27/17 14:16) Oxygen Administration (09/27/17 14:16) Ct Abd/Pel W/O Iv Contrast (09/27/17 14:16) Ketorolac Inj (Toradol Inj) (09/27/17 14:30) Sodium Chlor 0.9% 1000 Ml Inj (Ns 1000 M (09/27/17 14:30) Cath For Specimen (09/27/17 14:16) Aspirin Chew (Aspirin Chew) (09/27/17 16:45) Urine Culture (09/27/17 16:30) Ceftriaxone Inj (Rocephin Inj) (09/27/17 17:15) Morphine Inj (Morphine Inj) (09/27/17 17:15) Ondansetron Inj (Zofran Inj) (09/27/17 17:15) Admit Order (Ed Use Only) (09/27/17 17:23) Labs Laboratory Tests Test 09/27/17 14:35 09/27/17 16:30 White Blood Count 5.0 TH/MM3 Red Blood Count 4.02 MIL/MM3 Hemoglobin 12.6 GM/DL Hematocrit 36.8 % Mean Corpuscular Volume 91.5 FL Mean Corpuscular Hemoglobin 31.4 PG Mean Corpuscular Hemoglobin Concent 34.3 % Red Cell Distribution Width 13.5 % Platelet Count 163 TH/MM3 Mean Platelet Volume 8.7 FL Neutrophils (%) (Auto) 85.5 % Lymphocytes (%) (Auto) 3.4 % Monocytes (%) (Auto) 10.7 % Eosinophils (%) (Auto) 0.0 % Basophils (%) (Auto) 0.4 % Neutrophils # (Auto) 4.3 TH/MM3 Lymphocytes # (Auto) 0.2 TH/MM3 Monocytes # (Auto) 0.5 TH/MM3 Eosinophils # (Auto) 0.0 TH/MM3 Basophils # (Auto) 0.0 TH/MM3 CBC Comment DIFF FINAL Differential Comment Prothrombin Time 10.5 SEC Prothromb Time International Ratio 1.0 RATIO Activated Partial Thromboplast Time 26.3 SEC Blood Urea Nitrogen 17 MG/DL Creatinine 1.03 MG/DL Random Glucose 94 MG/DL Total Protein 7.8 GM/DL Albumin 3.7 GM/DL Calcium Level 8.9 MG/DL Magnesium Level 2.2 MG/DL Alkaline Phosphatase 78 U/L Aspartate Amino Transf (AST/SGOT) 11 U/L Alanine Aminotransferase (ALT/SGPT) 16 U/L Total Bilirubin 0.3 MG/DL Sodium Level 139 MEQ/L Potassium Level 3.8 MEQ/L Chloride Level 107 MEQ/L Carbon Dioxide Level 25.0 MEQ/L Anion Gap 7 MEQ/L Estimat Glomerular Filtration Rate 53 ML/MIN Lactic Acid Level 0.8 mmol/L Total Creatine Kinase 78 U/L Troponin I 0.06 NG/ML Lipase 124 U/L Urine Color YELLOW Urine Turbidity CLEAR Urine pH 6.5 Urine Specific [place] 1.011 Urine Protein TRACE mg/dL Urine Glucose (UA) NEG mg/dL Urine Ketones 10 mg/dL Urine Occult Blood SMALL Urine Nitrite NEG Urine Bilirubin NEG Urine Urobilinogen LESS THAN 2.0 MG/DL Urine Leukocyte Esterase LARGE Urine RBC 6 /hpf Urine WBC 27 /hpf Urine Squamous Epithelial Cells 1 /hpf Urine Mucus FEW /lpf Microscopic Urinalysis Comment CATH-CULTURE IND MDM Supervised Visit with TONEY: Yes Narrative Course The history, exam, and medical decision-making in the associated midlevel provider note were completed with my assistance. I reviewed and agree with the findings presented. I attest that I had a [id number] encounter with the patient on the same day, and personally performed and documented my assessment and findings in the medical record. *My assessment and Findings: This is a 66-year-old female who presents to the emergency department with atypical chest pain and flank pain. She has evidence of a urinary tract infection, she appears dry on exam and appears uncomfortable. She was given IV antibiotics and IV hydration. She also is having atypical chest pain and has a troponin of 0.06. Plan for observation, serial cardiac enzymes and continued antibiotic therapy. Diagnosis Primary Impression: Atypical chest pain Additional Impressions: Elevated troponin UTI (urinary tract infection) Qualified Codes: N30.01 - Acute cystitis with hematuria Admitting Information Admitting Physician Requests: Observation Ema Jeffries MD Sep 27, 2017 18:10
[2017-09-27] MEDS ORDERED: NON-FORMULARY DRUG (Lisinopril 40 MG) PO SCH (21:00)
[2017-09-27] MEDS: DOCUSATE SODIUM 50 MG/SENNA 8.6 MG TAB PO SCH (21:32)
[2017-09-27] MEDS: SODIUM CHLORIDE 0.9% FLUSH 10 ML FLUSH IV FLUSH SCH (21:32)
[2017-09-27] MEDS: LISINOPRIL 20 MG TAB PO SCH (21:33)
[2017-09-27] MEDS: SODIUM CHLOR 0.9% 1000 ML INJ 1,000 ML IV SCH (21:37)
[2017-09-27] MEDS: ONDANSETRON HCL 4 MG/2 ML VIAL IVP PRN (22:31)
[2017-09-27] MEDS: ACETAMINOPHEN 325 MG TAB PO PRN (23:02)
[2017-09-27] MEDS: MORPHINE SULFATE 2 MG/ML INJ IV PUSH PRN (23:03)
[2017-09-28] VITALS (11 sets, daily range): BP systolic 131–161; BP diastolic 63–75; PULSE 68–93; RESP 18–22; TEMP 98.4–102.4; O2SAT 91–97
[2017-09-28] MEDS: ACETAMINOPHEN 325 MG TAB PO PRN ×3 (03:39→17:19)
[2017-09-28] MEDS: MORPHINE SULFATE 2 MG/ML INJ IV PUSH PRN ×2 (03:40→17:20)
[2017-09-28 05:57] LABS: AUTOMATED NEUTROPHIL # 2.7 TH/MM3 (1.8-7.7); BASOPHIL % 0.5 % (0.0-2.0); EOSINOPHIL % 0.1 % (0.0-4.0); HEMATOCRIT 32.2 % (35.0-46.0); HEMO FLAGS DIFF FINAL; LYMPH % 10.6 % (9.0-44.0); LYMPHOCYTE # 0.4 TH/MM3 (1.0-4.8); MEAN CELL VOLUME 90.9 FL (80.0-100.0); MEAN CORPUSCULAR HEMOGLOBIN 30.7 PG (27.0-34.0); MEAN CORPUSCULAR HGB CONC 33.7 % (32.0-36.0); MONO % 8.9 % (0.0-8.0); NEUT % 79.9 % (16.0-70.0); PLATELET COUNT 137 TH/MM3 (150-450); RED BLOOD COUNT 3.54 MIL/MM3 (4.00-5.30); RED CELL DISTRIBUTION WIDTH 13.5 % (11.6-17.2); WHITE BLOOD COUNT 3.4 TH/MM3 (4.0-11.0)
[2017-09-28 06:14] LABS: BICARBONATE 25.6 MEQ/L (21.0-32.0); POTASSIUM 4.3 MEQ/L (3.5-5.1)
[2017-09-28] MEDS: DOCUSATE SODIUM 50 MG/SENNA 8.6 MG TAB PO SCH ×2 (08:28→20:39)
[2017-09-28] MEDS: LISINOPRIL 20 MG TAB PO SCH ×2 (08:29→20:39)
[2017-09-28] MEDS: SODIUM CHLOR 0.9% 1000 ML INJ 1,000 ML IV SCH ×2 (08:55→18:37)
[2017-09-28] MEDS: SODIUM CHLORIDE 0.9% FLUSH 10 ML FLUSH IV FLUSH SCH ×2 (09:00→20:39)
--- NOTE | 2017-09-28 10:21 | HHI.PR ---
Subjective Remarks Follow-up for bilateral flank plain and UTI Patient continues have fever. Fever last night 101.5. Her sister is at the bedside during the interview. Per patient and her sister patient is getting worse and does not look better. She continues to complain of bilateral flank pain radiating to her corn area. Patient stated that she had the left renal cysts in the past and she was told about this 10 months ago. Deny any nausea or vomiting. Patient stated that pain is controlled with the morphine. She denies any chest pain. Objective Vitals Vital Signs Date Time Temp Pulse Resp B/P (MAP) Pulse Ox O2 Delivery O2 Flow Rate FiO2 09/28/17 08:00 100.9 93 22 161/67 (98) 91 09/28/17 06:17 99.5 09/28/17 04:15 80 09/28/17 04:08 101.5 89 22 141/75 (97) 97 09/28/17 02:08 99.3 09/28/17 00:19 72 09/27/17 23:39 100.7 79 22 116/56 (76) 96 09/27/17 22:55 100.6 09/27/17 22:55 Nasal Cannula 2.00 09/27/17 21:35 72 09/27/17 20:01 98.7 75 22 117/56 (76) 96 09/27/17 19:47 81 16 118/86 (97) 98 2.00 09/27/17 18:25 98 Nasal Cannula 3.00 09/27/17 17:30 71 16 112/58 (76) 97 Nasal Cannula 2.00 09/27/17 14:46 16 97 Room Air 09/27/17 14:46 97 Room Air 09/27/17 12:45 100.4 100 18 135/63 (87) 96 I/O 09/27/17 09/27/17 09/27/17 09/28/17 09/28/17 09/28/17 06:59 14:59 22:59 06:59 14:59 22:59 Intake Total 1100 ml 840 ml Balance 1100 ml 840 ml Intake Oral 840 ml IV Total 1100 ml Result Diagram: 09/28/17 0526 09/28/17 05 Imaging Last Impressions Chest X-Ray 09/27/17 1416 Signed Impressions: Service Date/Time: Wednesday, September 27, 2017 14:25 - CONCLUSION: Normal examination. Jake Gurrola MD Abdomen/Pelvis CT 09/27/17 1416 Signed Impressions: Service Date/Time: Wednesday, September 27, 2017 16:00 - CONCLUSION: Large left renal cyst otherwise unremarkable CT scan of the abdomen and pelvis. Surgical throughout the lower retroperitoneum and pelvis. No concerning mass Jake Gurrola MD Objective Remarks GENERAL: In no acute distress but does look ill SKIN: Warm and dry. HEAD: Normocephalic. EYES: No scleral icterus. No injection or drainage. NECK: Supple, trachea midline. No JVD or lymphadenopathy. CARDIOVASCULAR: Regular rate and rhythm without murmurs, gallops, or rubs. RESPIRATORY: Breath sounds equal bilaterally. No accessory muscle use. GASTROINTESTINAL: Bilateral flank pain. Also lower abdominal pain more on the left side versus the right. Negative for any peritoneal signs. Nondistended. Medications and IVs Current Medications Ketorolac Tromethamine (Toradol Inj) 30 mg ONCE ONCE IV PUSH Last administered on 09/27/17 14:30; Start 09/27/17 at 14:30; Stop 09/27/17 at 14 :31; Status DC Sodium Chloride 1,000 ml @ 999 mls/hr BOLUS ONCE IV Last administered on 14:30; Start 09/27/17 at 14:30; Stop 09/27/17 at 15:30; Status DC Aspirin (Aspirin Chew) 162 mg ONCE ONCE CHEW Last administered on 09/27/17 16:45; Start 09/27/17 at 16:45; Stop 09/27/17 at 16:46; Status DC Ceftriaxone Sodium 1000 mg/ Sodium Chloride 100 ml @ 200 mls/hr ONCE ONCE IV Last administered on 09/27/17 17:29; Start 09/27/17 at 17:15; Stop 09/27/17 at 17:44; Status DC Morphine Sulfate (Morphine Inj) 4 mg ONCE ONCE IV PUSH Last administered on 17:29; Start 09/27/17 at 17:15; Stop 09/27/17 at 17:16; Status DC Ondansetron HCl (Zofran Inj) 4 mg ONCE ONCE IV PUSH Last administered on 09/27 17:29; Start 09/27/17 at 17:15; Stop 09/27/17 at 17:16; Status DC Amlodipine Besylate (Norvasc) 10 mg DAILY PO Last administered on 09/28/17 08 :28; Start 09/28/17 at 09:00 Non-Formulary Medication 40 mg BID PO ; Start 09/27/17 at 21:00; Status UNV Sodium Chloride (NS Flush) 2 ml UNSCH PRN IV FLUSH FLUSH AFTER USING IV ACCESS ; Start 09/27/17 at 18:00 Sodium Chloride (NS Flush) 2 ml BID IV FLUSH Last administered on 09/27/17 21 :32; Start 09/27/17 at 21:00 Acetaminophen (Tylenol) 650 mg Q4H PRN PO TEMP > 100.4 Last administered on 08:29; Start 09/27/17 at 18:00 Ondansetron HCl (Zofran Inj) 4 mg Q6H PRN IVP NAUSEA OR VOMITING Last administered on 09/27/17 22:31; Start 09/27/17 at 18:00 Temazepam (Restoril) 15 mg HS PRN PO INSOMNIA Last administered on 09/27/17 21:32; Start 09/27/17 at 18:00 Enoxaparin Sodium (Lovenox Inj) 40 mg Q24H SQ Last administered on 09/27/17 18:00; Start 09/27/17 at 18:00 Naloxone HCl (Narcan Inj) 0.4 mg UNSCH PRN IV PUSH SEE LABEL COMMENTS; Start 09/27/17 at 18:00 Senna/Docusate Sodium (Rozina-Colace) 1 tab BID PO Last administered on 08:28; Start 09/27/17 at 21:00 Magnesium Hydroxide (Milk Of Magnesia Liq) 30 ml Q12H PRN PO Mild constipation ; Start 09/27/17 at 18:00 Sennosides (Senokot) 17.2 mg Q12H PRN PO Moderate constipation; Start at 18:00 Bisacodyl (Dulcolax Supp) 10 mg DAILY PRN RECTAL SEVERE CONSITIPATION; Start 09/27/17 at 18:00 Lactulose (Lactulose Liq) 30 ml DAILY PRN PO SEVERE CONSITIPATION; Start 09/27 at 18:00 Ceftriaxone Sodium 1000 mg/ Sodium Chloride 100 ml @ 200 mls/hr Q24H IV ; Start 09/27/17 at 18:00; Status Cancel Morphine Sulfate (Morphine Inj) 2 mg Q4H PRN SQ pain 2-10; Start 09/27/17 at 18:00; Stop 09/27/17 at 22:57; Status DC Ceftriaxone Sodium 1000 mg/ Sodium Chloride 100 ml @ 200 mls/hr Q24H IV ; Start 09/27/17 at 18:30; Status Cancel Ceftriaxone Sodium 1000 mg/ Sodium Chloride 100 ml @ 200 mls/hr Q24H IV ; Start 09/28/17 at 18:00; Stop 09/28/17 at 18:00; Status DC Lisinopril (Prinivil) 40 mg BID PO Last administered on 09/28/17 08:29; Start 09/27/17 at 21:00 Sodium Chloride 1,000 ml @ 84 mls/hr [id number] IV Last administered on 21:37; Start 09/27/17 at 21:00 Morphine Sulfate (Morphine Inj) 2 mg Q4H PRN IV PUSH pain 2-10 Last administered on 09/28/17t 03:40; Start 09/28/17 at 02:00 Ceftriaxone Sodium 2000 mg/ Sodium Chloride 100 ml @ 200 mls/hr Q24H IV ; Start 09/28/17 at 18:00; Status UNV A/P Assessment and Plan 66-year-old female who presented with severe bilateral flank pain radiating to the abdomen and fevers Concerning for pyelonephritis -UA +, continues to spike fever, severe bilateral flank pain. CT scan of the abdomen/pelvis significant for large left renal cyst. -Will get renal ultrasound. Increase Rocephin to 2 g IV daily since symptoms are not improving. Pending urine and blood cultures. -Consult infectious disease. Atypical chest pain, resolved. -During my interview she complained of CVA tenderness not chest pain. EKG reviewed showed no acute ST changes. -Troponins are mildly elevated. Will get another troponin to monitor trend. -Patient on aspirin. Pending hemoglobin A1c and lipid profile. DVT prophylaxis -On Lovenox. Discharge Planning Concerning for pyelonephritis. She continues to spike fever and looks ill. Symptoms are not improving. Patient will need to be admitted to the hospital as inpatient status for continual aggressive treatment. She may require 2-3 more days of hospitalization depending on her clinical course. Lovely Davis MD Sep 28, 2017 10:21
--- NOTE | 2017-09-28 11:12 | RADRPT ---
EXAM DATE/TIME: 09/28/2017 10:50 [facility] COMPARISON: CT ABDOMEN & PELVIS W/O CONTRAST, September 27, 2017, 16:00. [facility] [place] [facility], May 13, 2017 INDICATIONS : Flank pain. MEDICAL HISTORY : Hypercholesterolemia. Renal calculi. Arthritis. Right cataract. HTN. Hyperlipidemia. Sleep apnea. Rhe umatiod arthritis. Osteoarthritis. Insomnia. Depression. Anxiety. SURGICAL HISTORY : Appendectomy. Hysterectomy. Tubal ligation. Breast biopsy. Left breast tumor removal. Left elbow lanny keri. Blood transfusions. ENCOUNTER: Initial ACUITY: 1 day PAIN SCORE: 6/10 LOCATION: Bilateral flank MEASUREMENTS: RIGHT KIDNEY: 12.3 x 5.1 x 5.8 cm LEFT KIDNEY: 12.2 x 6.0 x 5.3 cm FINDINGS: RIGHT KIDNEY: Renal cortex is normal in thickness and echotexture. No hydronephrosis, stone, or mass. LEFT KIDNEY: Renal cortex is normal in thickness and echotexture. No hydronephrosis, stone, or mass. Low density area identified in the hilum the left kidney corresponds to a 4.8 x 5.0 x 4.6 cm parapelvic cyst. BLADDER: Within normal limits given the degree of distension. CONCLUSION: 1. 5 cm parapelvic cyst in the left kidney. 2. Otherwise negative. No hydronephrosis. Chuck Winslow MD on September 28, 2017 at 11:08 Board Certified Radiologist. This report was verified electronically.
--- NOTE | 2017-09-28 14:20 | PD.CONS ---
History of Present Illness Service Infectious Disease Consult Requested By Dr Bia uribe Reason for Consult Evaluate patient with fevers and bilateral flank pain Primary Care Physician Latoya Carson [employer] Diagnoses: History of Present Illness Patient seen and examined. Records reviewed. Patient is a 66-year-old female, presented to the hospital with 1 day history of bilateral flank pain that goes into the front. She started having fevers and headaches. Denies any sore complaint, sore throat. He's had some nausea and vomiting. Denies any diarrhea. She did have some dysuria, but no frequency or urgency or hematuria. Patient stated she has had prior history of kidney stones and she passed the stone spontaneously. She has not had any urological intervention done. Since admission she's been febrile. CT of the abdomen and pelvis did not show any hydronephrosis, but it did show a left renal cyst. Urinalysis showed some mild pyuria. Blood cultures are negative so far and urine culture is pending. Influenza testing is negative. Chest x- rays normal. Renal ultrasound did not show any hydronephrosis. Patient currently is on cefepime. Infectious disease consultation has been requested to evaluate the patient with fever and bilateral flank pain. Review of Systems Constitutional: COMPLAINS OF: Fever, Chills Eyes: DENIES: Eye pain Ears, nose, mouth, throat: DENIES: Oral lesions, Throat pain, Ear Pain, Sinus Pain Respiratory: DENIES: Cough, Shortness of breath Cardiovascular: DENIES: Chest pain, Palpitations, Dyspnea on Exertion Gastrointestinal: COMPLAINS OF: Abdominal pain, Nausea, Vomiting, DENIES: Diarrhea, Difficulty Swallowing Genitourinary: COMPLAINS OF: Dysuria, DENIES: Urgency, Hematuria Musculoskeletal: COMPLAINS OF: Back pain, Neck pain Integumentary: DENIES: Rash Neurologic: COMPLAINS OF: Headache, DENIES: Localized weakness Psychiatric: DENIES: Hallucinations Past Family Social History Allergies: Coded Allergies: codeine (Unverified Allergy, Severe, swelling, 09/27/17) tetanus toxoid, adsorbed (Unverified Allergy, Severe, Anaphylaxis, ) Uncoded Allergies: ARTIFICIAL SWEETNERS (Allergy, Severe, Anaphylaxis, 09/25/14) DIET SODA (Allergy, Severe, swollen, 04/23/17) Past Medical History Hypertension RA Nephrolithiasis Past Surgical History Appendicitis Hysterectomy Left elbow surgery Reported Medications Reported Meds & Active Scripts Active Reported Atorvastatin (Atorvastatin Calcium) 40 Mg Tab 40 Mg PO HS Norvasc (Amlodipine Besylate) 10 Mg Tab 10 Mg PO DAILY Lisinopril 40 Mg Tab 40 Mg PO BID Active Ordered Medications Current Medications Medications (Trade) Dose Ordered Sig/Tania Route Start Time Stop Time Status Last Admin (Norvasc) 10 mg DAILY PO 09/28/17 09:00 09/28/17 08:28 (NS Flush) 2 ml UNSCH PRN IV FLUSH 09/27/17 18:00 (NS Flush) 2 ml BID IV FLUSH 09/27/17 21:00 09/27/17 21:32 (Tylenol) 650 mg Q4H PRN PO 09/27/17 18:00 09/28/17 08:29 (Zofran Inj) 4 mg Q6H PRN IVP 09/27/17 18:00 09/27/17 22:31 (Restoril) 15 mg HS PRN PO 09/27/17 18:00 09/27/17 21:32 (Lovenox Inj) 40 mg Q24H SQ 09/27/17 18:00 09/27/17 18:00 (Narcan Inj) 0.4 mg UNSCH PRN IV PUSH 09/27/17 18:00 (Rozina-Colace) 1 tab BID PO 09/27/17 21:00 09/28/17 08:28 (Milk Of Magnesia Liq) 30 ml Q12H PRN PO 09/27/17 18:00 (Senokot) 17.2 mg Q12H PRN PO 09/27/17 18:00 (Dulcolax Supp) 10 mg DAILY PRN RECTAL 09/27/17 18:00 (Lactulose Liq) 30 ml DAILY PRN PO 09/27/17 18:00 (Prinivil) 40 mg BID PO 09/27/17 21:00 09/28/17 08:29 Sodium Chloride 1,000 ml @ 84 mls/hr [id number] IV 09/27/17 21:00 09/27/17 21:37 (Morphine Inj) 2 mg Q4H PRN IV PUSH 09/28/17 02:00 09/28/17 03:40 Ceftriaxone Sodium 2000 mg/ Sodium Chloride 100 ml @ 200 mls/hr Q24H IV 09/28/17 18:00 Family History Noncontributory Social History Tobacco 1 ppd quit 3 years ago, 15 years No EtOH denies illicit drug use Physical Exam Vital Signs Vital Signs Date Time Temp Pulse Resp B/P (MAP) Pulse Ox O2 Delivery O2 Flow Rate FiO2 09/28/17 12:29 100.7 78 20 141/63 (89) 95 09/28/17 08:00 100.9 93 22 161/67 (98) 91 09/28/17 06:17 99.5 09/28/17 04:15 80 09/28/17 04:08 101.5 89 22 141/75 (97) 97 09/28/17 02:08 99.3 09/28/17 00:19 72 09/27/17 23:39 100.7 79 22 116/56 (76) 96 09/27/17 22:55 100.6 09/27/17 22:55 Nasal Cannula 2.00 09/27/17 21:35 72 09/27/17 20:01 98.7 75 22 117/56 (76) 96 09/27/17 19:47 81 16 118/86 (97) 98 2.00 09/27/17 18:25 98 Nasal Cannula 3.00 09/27/17 17:30 71 16 112/58 (76) 97 Nasal Cannula 2.00 09/27/17 14:46 16 97 Room Air 09/27/17 14:46 97 Room Air Physical Exam GENERAL: Patient is a well-nourished, well-developed female, awake and alert , not in respiratory distress. SKIN: Warm and dry. No generalized rash, no ecchymoses and no evidence of embolic lesions. HEAD: Atraumatic. Normocephalic. No temporal wasting, or tenderness. EYES: [place] conjunctiva. No petechia or hemorrhage. Pupils equal, round and reactive to light. Extraocular movements full and intact. No scleral icterus. No injection or drainage. EARS, NOSE AND THROAT: Nose without bleeding or purulent nasal discharge. No sinus tenderness. Mucous membranes pink and moist. No oral lesions noted. No exudate. No oral thrush. NECK: Trachea midline. Supple and not tender, no meningeal signs CARDIOVASCULAR: Regular rate and rhythm. No murmurs, rubs or gallops heard RESPIRATORY: Clear to auscultation. Breath sounds equal bilaterally. No rales , wheezing or rhonchi ABDOMEN: Soft, nondistended, has mild tenderness on the right side, no guarding or rebound. Bowel sounds present and normoactive. No organomegaly. BACK: No spine tenderness, has bilateral CVA tenderness, worse on L than on R EXTREMITIES: No clubbing, cyanosis, or edema. No joint effusion, has good ROM. No calf tenderness. Well perfused and warm. NEUROLOGICAL: Awake and alert. Cranial nerves grossly intact. Motor grossly within normal limits. PSYCHIATRIC: Normal affect, calm and cooperative. LINE: No evidence of infection Laboratory Laboratory Tests Test 09/27/17 14:35 09/27/17 16:30 09/27/17 23:20 09/28/17 05:26 White Blood Count 5.0 3.4 Red Blood Count 4.02 3.54 Hemoglobin 12.6 10.9 Hematocrit 36.8 32.2 Mean Corpuscular Volume 91.5 90.9 Mean Corpuscular Hemoglobin 31.4 30.7 Mean Corpuscular Hemoglobin Concent 34.3 33.7 Red Cell Distribution Width 13.5 13.5 Platelet Count 163 137 Mean Platelet Volume 8.7 8.7 Neutrophils (%) (Auto) 85.5 79.9 Lymphocytes (%) (Auto) 3.4 10.6 Monocytes (%) (Auto) 10.7 8.9 Eosinophils (%) (Auto) 0.0 0.1 Basophils (%) (Auto) 0.4 0.5 Neutrophils # (Auto) 4.3 2.7 Lymphocytes # (Auto) 0.2 0.4 Monocytes # (Auto) 0.5 0.3 Eosinophils # (Auto) 0.0 0.0 Basophils # (Auto) 0.0 0.0 CBC Comment DIFF FINAL DIFF FINAL Differential Comment Prothrombin Time 10.5 Prothromb Time International Ratio 1.0 Activated Partial Thromboplast Time 26.3 Blood Urea Nitrogen 17 14 Creatinine 1.03 0.84 Random Glucose 94 110 Total Protein 7.8 Albumin 3.7 Calcium Level 8.9 8.3 Magnesium Level 2.2 Alkaline Phosphatase 78 Aspartate Amino Transf (AST/SGOT) 11 Alanine Aminotransferase (ALT/SGPT) 16 Total Bilirubin 0.3 Sodium Level 139 138 Potassium Level 3.8 4.3 Chloride Level 107 107 Carbon Dioxide Level 25.0 25.6 Anion Gap 7 5 Estimat Glomerular Filtration Rate 53 67 Lactic Acid Level 0.8 Total Creatine Kinase 78 Troponin I 0.06 0.09 0.10 Lipase 124 Urine Color YELLOW Urine Turbidity CLEAR Urine pH 6.5 Urine Specific [place] 1.011 Urine Protein TRACE Urine Glucose (UA) NEG Urine Ketones 10 Urine Occult Blood SMALL Urine Nitrite NEG Urine Bilirubin NEG Urine Urobilinogen LESS THAN 2.0 Urine Leukocyte Esterase LARGE Urine RBC 6 Urine WBC 27 Urine Squamous Epithelial Cells 1 Urine Mucus FEW Microscopic Urinalysis Comment CATH-CULTURE IND Prealbumin 16 Date/Time Source Procedure Growth Status 09/27/17 14:40 Blood Peripheral Aerobic Blood Culture - Preliminary NO GROWTH IN 1 DAY Resulted 09/27/17 14:40 Blood Peripheral Anaerobic Blood Culture - Preliminary NO GROWTH IN 1 DAY Resulted 09/27/17 14:34 Nasal Aspirate Influenza Types A,B Antigen (BERONICA) - Final NEGATIVE FOR FLU A AND B ANTIGEN.... Complete 09/27/17 16:30 Urine Catheterized Urine Urine Culture - Preliminary IMMATURE GROWTH - REINCUBATE Resulted Result Diagram: 09/28/17 0526 09/28/17 0526 Imaging RADIOLOGY STUDIES/FILMS REVIEWED Renal Ultrasound 09/28/17 0000 Signed Impressions: Service Date/Time: Thursday, September 28, 2017 10:50 - CONCLUSION: 1. 5 cm parapelvic cyst in the left kidney. 2. Otherwise negative. No hydronephrosis. Chuck Winslow MD Chest X-Ray [id number] Signed Impressions: Service Date/Time: Wednesday, September 27, 2017 14:25 - CONCLUSION: Normal examination. Jake Gurrola MD Abdomen/Pelvis CT [id number] Signed Impressions: Service Date/Time: Wednesday, September 27, 2017 16:00 - CONCLUSION: Large left renal cyst otherwise unremarkable CT scan of the abdomen and pelvis. Surgical throughout the lower retroperitoneum and pelvis. No concerning mass Jake Gurrola MD Assessment and Plan Assessment and Plan IMPRESSION Febrile illness, with ne flank pain, (+) UA, likely - no hydro on CT, but has the cyst L kidney - no stone seen Neutropenia due to sepsis Hx kidney stones, none seen on imaging studies RECOMMENDATION IV Zosyn Stop Rocephin Follow C/S Follow CBC Follow temps Monitor progress I will follow along with you Thank you for this consultation Discussed Condition With Explained plan to patient Elda Dowd MD Sep 28, 2017 14:20
[2017-09-28] MEDS: ENOXAPARIN SODIUM 40 MG/0.4 ML SYRINGE SQ SCH (17:19)
[2017-09-28] MEDS: ONDANSETRON HCL 4 MG/2 ML VIAL IVP PRN (17:29)
[2017-09-28] MEDS ORDERED: cefTRIAXone INJ 2,000 MG in SODIUM CHLORIDE 0.9% INJ 100 ML IV SCH (18:00)
[2017-09-28] MEDS ORDERED: cefTRIAXone INJ 1,000 MG in SODIUM CHLORIDE 0.9% INJ 100 ML IV SCH (18:00)
--- NOTE | 2017-09-28 18:03 | EKG ---
Date Performed: 09/27/2017 Time Performed: 14:49:51 PTAGE: 66 years EKG: Sinus rhythm POSSIBLE RIGHT VENTRICULAR CONDUCTION DELAY NONSPECIFIC T-WAVE ABNORMALITY Since previous tracing, n o significant change noted BORDERLINE ECG PREVIOUS TRACING : 04/23/2017 16.18 DOCTOR: Landen Silverman Interpretating Date/Time 09/28/2017 18:02:59
--- NOTE | 2017-09-28 18:04 | EKG ---
Date Performed: 09/27/2017 Time Performed: 23:43:37 PTAGE: 66 years EKG: Sinus rhythm INCOMPLETE RIGHT BUNDLE BRANCH BLOCK NONSPECIFIC T-WAVE ABNORMALITY Since previous tracing, no signi ficant change noted BORDERLINE ECG PREVIOUS TRACING : 09/27/2017 20.44 DOCTOR: Landen Silverman Interpretating Date/Time 09/28/2017 18:04:19
--- NOTE | 2017-09-28 18:04 | EKG ---
Date Performed: 09/27/2017 Time Performed: 20:44:44 PTAGE: 66 years EKG: Sinus rhythm NONSPECIFIC T-WAVE ABNORMALITY Since previous tracing, no significant change noted BORDERLINE ECG PREVIOUS TRACING : 09/27/2017 14.49 DOCTOR: Landen Silverman Interpretating Date/Time 09/28/2017 18:03:55
[2017-09-29] VITALS (10 sets, daily range): BP systolic 117–157; BP diastolic 57–70; PULSE 60–83; RESP 17–20; TEMP 96.3–100.4; O2SAT 94–98
[2017-09-29] MEDS: ACETAMINOPHEN 325 MG TAB PO PRN (04:20)
[2017-09-29 06:17] LABS: HEMATOCRIT 33.9 % (35.0-46.0); MEAN CELL VOLUME 90.7 FL (80.0-100.0); MEAN CORPUSCULAR HEMOGLOBIN 31.4 PG (27.0-34.0); MEAN CORPUSCULAR HGB CONC 34.6 % (32.0-36.0); PLATELET COUNT 140 TH/MM3 (150-450); RED BLOOD COUNT 3.74 MIL/MM3 (4.00-5.30); RED CELL DISTRIBUTION WIDTH 13.9 % (11.6-17.2); REVIEW FLAG FINAL; WHITE BLOOD COUNT 2.6 TH/MM3 (4.0-11.0)
[2017-09-29 06:45] LABS: BICARBONATE 23.9 MEQ/L (21.0-32.0); POTASSIUM 3.6 MEQ/L (3.5-5.1)
[2017-09-29] MEDS: DOCUSATE SODIUM 50 MG/SENNA 8.6 MG TAB PO SCH ×2 (09:44→21:00)
[2017-09-29] MEDS: LISINOPRIL 20 MG TAB PO SCH ×2 (09:44→21:14)
[2017-09-29] MEDS: SODIUM CHLORIDE 0.9% FLUSH 10 ML FLUSH IV FLUSH SCH ×2 (09:44→21:00)
[2017-09-29] MEDS: SODIUM CHLOR 0.9% 1000 ML INJ 1,000 ML IV SCH ×2 (09:45→21:15)
--- NOTE | 2017-09-29 11:47 | HHI.PR ---
Subjective Remarks Follow-up for infection and fever Patient states she feels a lot better. Fevers improved. She stated that her bilateral CVA pain resolved. Her sisters at the bedside. No other complaints. Objective Vitals Vital Signs Date Time Temp Pulse Resp B/P (MAP) Pulse Ox O2 Delivery O2 Flow Rate FiO2 09/29/17 08:10 96.3 60 20 132/60 (84) 96 09/29/17 05:20 18 09/29/17 04:14 100.4 83 17 140/63 (88) 98 09/29/17 03:46 70 09/29/17 00:38 98.8 60 17 117/57 (77) 94 09/29/17 00:05 62 09/28/17 21:41 97 Nasal Cannula 2.00 09/28/17 20:32 99.8 68 18 131/67 (88) 97 09/28/17 20:04 75 09/28/17 16:36 102.4 93 18 135/63 (87) 96 09/28/17 12:29 100.7 78 20 141/63 (89) 95 I/O 09/28/17 09/28/17 09/28/17 09/29/17 09/29/17 09/29/17 07:00 15:00 23:00 07:00 15:00 23:00 Intake Total 840 ml Balance 840 ml Intake Oral 840 ml # Voids 3 # Bowel Movements 0 Result Diagram: 09/29/17 0503 09/29/17 0500 Objective Remarks GENERAL: In no acute distress but does look ill SKIN: Warm and dry. HEAD: Normocephalic. EYES: No scleral icterus. No injection or drainage. NECK: Supple, trachea midline. No JVD or lymphadenopathy. CARDIOVASCULAR: Regular rate and rhythm without murmurs, gallops, or rubs. RESPIRATORY: Breath sounds equal bilaterally. No accessory muscle use. GASTROINTESTINAL: No tenderness to palpation. Nondistended. Negative for any peritoneal signs. Normoactive bowel sounds. Medications and IVs Current Medications Ketorolac Tromethamine (Toradol Inj) 30 mg ONCE ONCE IV PUSH Last administered on 09/27/17t 14:30; Start 09/27/17 at 14:30; Stop 09/27/17 at 14 :31; Status DC Sodium Chloride 1,000 ml @ 999 mls/hr BOLUS ONCE IV Last administered on 14:30; Start 09/27/17 at 14:30; Stop 09/27/17 at 15:30; Status DC Aspirin (Aspirin Chew) 162 mg ONCE ONCE CHEW Last administered on 09/27/17 16:45; Start 09/27/17 at 16:45; Stop 09/27/17 at 16:46; Status DC Ceftriaxone Sodium 1000 mg/ Sodium Chloride 100 ml @ 200 mls/hr ONCE ONCE IV Last administered on 09/27/17 17:29; Start 09/27/17 at 17:15; Stop 09/27/17 at 17:44; Status DC Morphine Sulfate (Morphine Inj) 4 mg ONCE ONCE IV PUSH Last administered on 17:29; Start 09/27/17 at 17:15; Stop 09/27/17 at 17:16; Status DC Ondansetron HCl (Zofran Inj) 4 mg ONCE ONCE IV PUSH Last administered on 09/27 17:29; Start 09/27/17 at 17:15; Stop 09/27/17 at 17:16; Status DC Amlodipine Besylate (Norvasc) 10 mg DAILY PO Last administered on 09/29/17 09 :44; Start 09/28/17 at 09:00 Non-Formulary Medication 40 mg BID PO ; Start 09/27/17 at 21:00; Status UNV Sodium Chloride (NS Flush) 2 ml UNSCH PRN IV FLUSH FLUSH AFTER USING IV ACCESS ; Start 09/27/17 at 18:00 Sodium Chloride (NS Flush) 2 ml BID IV FLUSH Last administered on 09/29/17 09 :44; Start 09/27/17 at 21:00 Acetaminophen (Tylenol) 650 mg Q4H PRN PO TEMP > 100.4 Last administered on 04:20; Start 09/27/17 at 18:00 Ondansetron HCl (Zofran Inj) 4 mg Q6H PRN IVP NAUSEA OR VOMITING Last administered on 09/28/17 17:29; Start 09/27/17 at 18:00 Temazepam (Restoril) 15 mg HS PRN PO INSOMNIA Last administered on 09/27/17 21:32; Start 09/27/17 at 18:00 Enoxaparin Sodium (Lovenox Inj) 40 mg Q24H SQ Last administered on 09/28/17 17:19; Start 09/27/17 at 18:00 Naloxone HCl (Narcan Inj) 0.4 mg UNSCH PRN IV PUSH SEE LABEL COMMENTS; Start 09/27/17 at 18:00 Senna/Docusate Sodium (Rozina-Colace) 1 tab BID PO Last administered on 09:44; Start 09/27/17 at 21:00 Magnesium Hydroxide (Milk Of Magnesia Liq) 30 ml Q12H PRN PO Mild constipation ; Start 09/27/17 at 18:00 Sennosides (Senokot) 17.2 mg Q12H PRN PO Moderate constipation; Start at 18:00 Bisacodyl (Dulcolax Supp) 10 mg DAILY PRN RECTAL SEVERE CONSITIPATION; Start 09/27/17 at 18:00 Lactulose (Lactulose Liq) 30 ml DAILY PRN PO SEVERE CONSITIPATION; Start 09/27 at 18:00 Ceftriaxone Sodium 1000 mg/ Sodium Chloride 100 ml @ 200 mls/hr Q24H IV ; Start 09/27/17 at 18:00; Status Cancel Morphine Sulfate (Morphine Inj) 2 mg Q4H PRN SQ pain 2-10; Start 09/27/17 at 18:00; Stop 09/27/17 at 22:57; Status DC Ceftriaxone Sodium 1000 mg/ Sodium Chloride 100 ml @ 200 mls/hr Q24H IV ; Start 09/27/17 at 18:30; Status Cancel Ceftriaxone Sodium 1000 mg/ Sodium Chloride 100 ml @ 200 mls/hr Q24H IV ; Start 09/28/17 at 18:00; Stop 09/28/17 at 18:00; Status DC Lisinopril (Prinivil) 40 mg BID PO Last administered on 09/29/17 09:44; Start 09/27/17 at 21:00 Sodium Chloride 1,000 ml @ 84 mls/hr [id number] IV Last administered on 09:45; Start 09/27/17 at 21:00 Morphine Sulfate (Morphine Inj) 2 mg Q4H PRN IV PUSH pain 2-10 Last administered on 12/18/17at 17:20; Start 09/28/17 at 02:00 Ceftriaxone Sodium 2000 mg/ Sodium Chloride 100 ml @ 200 mls/hr Q24H IV Last administered on 09/28/17t 17:49; Start 09/28/17 at 18:00; Stop 09/29/17 at 11 :00; Status DC Piperacillin Sod/ Tazobactam Sod 50 ml @ 100 mls/hr Q6H IV ; Start 09/29/17 at 11:00 A/P Assessment and Plan 66-year-old female who presented with severe bilateral flank pain radiating to the abdomen and fevers Concerning for pyelonephritis -UA +, continues to spike fever, severe bilateral flank pain. CT scan of the abdomen/pelvis significant for large left renal cyst. Renal ultrasound confirms left renal cyst otherwise negative. Urine culture so far negative. -Rocephin was discontinued. On Zosyn per infectious disease. -Clinically patient is improving drastically on Zosyn. Continue with Zosyn pending recommendations from infectious disease. Atypical chest pain, resolved. -During my interview she complained of CVA tenderness not chest pain. EKG reviewed showed no acute ST changes. -Troponins are mildly elevated and stable. -Patient on aspirin. Neutropenia -Most likely secondary to infectious etiology. Continue to monitor. Clinically she is doing better. DVT prophylaxis -On Lovenox. Lovely Davis MD Sep 29, 2017 11:47
[2017-09-29] MEDS: PIPERACIL-TAZO 3.375 GM PREMIX 50 ML IV SCH ×3 (12:13→23:26)
--- NOTE | 2017-09-29 14:15 | HHI.IDPN ---
Subjective Subjective Remarks Patient is a 66-year-old female, presented to the hospital with 1 day history of bilateral flank pain that goes into the front. She started having fevers and headaches. Denies any sore complaint, sore throat. He's had some nausea and vomiting. Denies any diarrhea. She did have some dysuria, but no frequency or urgency or hematuria. Patient stated she has had prior history of kidney stones and she passed the stone spontaneously. She has not had any urological intervention done. Since admission she's been febrile. CT of the abdomen and pelvis did not show any hydronephrosis, but it did show a left renal cyst. Urinalysis showed some mild pyuria. Blood cultures are negative so far and urine culture is pending. Influenza testing is negative. Chest x- rays normal. Renal ultrasound did not show any hydronephrosis. Patient currently is on cefepime. Infectious disease consultation has been requested to evaluate the patient with fever and bilateral flank pain. Notes reviewed D/W Dr Bia Davis Flank pain gone Had some vomiting last nigh and today No abdominal pain WBC down to 2.6 BC negative UC mixed Antibiotics Current Medications Zosyn Medications (Trade) Dose Ordered Sig/Tania Route Start Time Stop Time Status Last Admin (Norvasc) 10 mg DAILY PO 09/28/17 09:00 09/29/17 09:44 (NS Flush) 2 ml UNSCH PRN IV FLUSH 09/27/17 18:00 (NS Flush) 2 ml BID IV FLUSH 09/27/17 21:00 09/29/17 09:44 (Tylenol) 650 mg Q4H PRN PO 09/27/17 18:00 09/29/17 04:20 (Zofran Inj) 4 mg Q6H PRN IVP 09/27/17 18:00 09/28/17 17:29 (Restoril) 15 mg HS PRN PO 09/27/17 18:00 09/27/17 21:32 (Lovenox Inj) 40 mg Q24H SQ 09/27/17 18:00 09/28/17 17:19 (Narcan Inj) 0.4 mg UNSCH PRN IV PUSH 09/27/17 18:00 (Rozina-Colace) 1 tab BID PO 09/27/17 21:00 09/29/17 09:44 (Milk Of Magnesia Liq) 30 ml Q12H PRN PO 09/27/17 18:00 (Senokot) 17.2 mg Q12H PRN PO 09/27/17 18:00 (Dulcolax Supp) 10 mg DAILY PRN RECTAL 09/27/17 18:00 (Lactulose Liq) 30 ml DAILY PRN PO 09/27/17 18:00 (Prinivil) 40 mg BID PO 09/27/17 21:00 09/29/17 09:44 Sodium Chloride 1,000 ml @ 84 mls/hr [id number] IV 09/27/17 21:00 09/29/17 09:45 (Morphine Inj) 2 mg Q4H PRN IV PUSH 09/28/17 02:00 09/28/17 17:20 Piperacillin Sod/ Tazobactam Sod 50 ml @ 100 mls/hr Q6H IV 09/29/17 11:00 09/29/17 12:13 Lines PIV Past Medical History Hypertension RA Nephrolithiasis Past Surgical History Appendicitis Hysterectomy Left elbow surgery Allergies: Coded Allergies: codeine (Unverified Allergy, Severe, swelling, 09/27/17) tetanus toxoid, adsorbed (Unverified Allergy, Severe, Anaphylaxis, ) Uncoded Allergies: ARTIFICIAL SWEETNERS (Allergy, Severe, Anaphylaxis, 09/25/14) DIET SODA (Allergy, Severe, swollen, 04/23/17) Objective . Vital Signs Date Time Temp Pulse Resp B/P (MAP) Pulse Ox O2 Delivery O2 Flow Rate FiO2 09/29/17 11:49 96.9 67 18 133/58 (83) 95 09/29/17 08:10 96.3 60 20 132/60 (84) 96 09/29/17 05:20 18 09/29/17 04:14 100.4 83 17 140/63 (88) 98 09/29/17 03:46 70 09/29/17 00:38 98.8 60 17 117/57 (77) 94 09/29/17 00:05 62 09/28/17 21:41 97 Nasal Cannula 2.00 09/28/17 20:32 99.8 68 18 131/67 (88) 97 09/28/17 20:04 75 09/28/17 16:36 102.4 93 18 135/63 (87) 96 . Laboratory Tests Test 09/27/17 14:35 09/28/17 05:26 09/29/17 05:03 White Blood Count 5.0 TH/MM3 3.4 TH/MM3 2.6 TH/MM3 Red Blood Count 4.02 MIL/MM3 3.54 MIL/MM3 3.74 MIL/MM3 Hemoglobin 12.6 GM/DL 10.9 GM/DL 11.7 GM/DL Hematocrit 36.8 % 32.2 % 33.9 % Mean Corpuscular Volume 91.5 FL 90.9 FL 90.7 FL Mean Corpuscular Hemoglobin 31.4 PG 30.7 PG 31.4 PG Mean Corpuscular Hemoglobin Concent 34.3 % 33.7 % 34.6 % Red Cell Distribution Width 13.5 % 13.5 % 13.9 % Platelet Count 163 TH/MM3 137 TH/MM3 140 TH/MM3 Mean Platelet Volume 8.7 FL 8.7 FL 8.9 FL Neutrophils (%) (Auto) 85.5 % 79.9 % Lymphocytes (%) (Auto) 3.4 % 10.6 % Monocytes (%) (Auto) 10.7 % 8.9 % Eosinophils (%) (Auto) 0.0 % 0.1 % Basophils (%) (Auto) 0.4 % 0.5 % Neutrophils # (Auto) 4.3 TH/MM3 2.7 TH/MM3 Lymphocytes # (Auto) 0.2 TH/MM3 0.4 TH/MM3 Monocytes # (Auto) 0.5 TH/MM3 0.3 TH/MM3 Eosinophils # (Auto) 0.0 TH/MM3 0.0 TH/MM3 Basophils # (Auto) 0.0 TH/MM3 0.0 TH/MM3 CBC Comment DIFF FINAL DIFF FINAL Differential Comment Laboratory Tests Test 09/27/17 14:35 09/27/17 23:20 09/28/17 05:26 09/28/17 14:23 Blood Urea Nitrogen 17 MG/DL 14 MG/DL Creatinine 1.03 MG/DL 0.84 MG/DL Random Glucose 94 MG/DL 110 MG/DL Total Protein 7.8 GM/DL Albumin 3.7 GM/DL Calcium Level 8.9 MG/DL 8.3 MG/DL Magnesium Level 2.2 MG/DL Alkaline Phosphatase 78 U/L Aspartate Amino Transf (AST/SGOT) 11 U/L Alanine Aminotransferase (ALT/SGPT) 16 U/L Total Bilirubin 0.3 MG/DL Sodium Level 139 MEQ/L 138 MEQ/L Potassium Level 3.8 MEQ/L 4.3 MEQ/L Chloride Level 107 MEQ/L 107 MEQ/L Carbon Dioxide Level 25.0 MEQ/L 25.6 MEQ/L Anion Gap 7 MEQ/L 5 MEQ/L Estimat Glomerular Filtration Rate 53 ML/MIN 67 ML/MIN Lactic Acid Level 0.8 mmol/L Total Creatine Kinase 78 U/L Troponin I 0.06 NG/ML 0.09 NG/ML 0.10 NG/ML 0.07 NG/ML Lipase 124 U/L Prealbumin 16 MG/DL Test 09/29/17 05:00 Blood Urea Nitrogen 11 MG/DL Creatinine 0.57 MG/DL Random Glucose 88 MG/DL Calcium Level 8.1 MG/DL Sodium Level 138 MEQ/L Potassium Level 3.6 MEQ/L Chloride Level 106 MEQ/L Carbon Dioxide Level 23.9 MEQ/L Anion Gap 8 MEQ/L Estimat Glomerular Filtration Rate 105 ML/MIN Microbiology Date/Time Source Procedure Growth Status 09/27/17 14:40 Blood Peripheral Aerobic Blood Culture - Preliminary NO GROWTH IN 2 DAYS Resulted 09/27/17 14:40 Blood Peripheral Anaerobic Blood Culture - Preliminary NO GROWTH IN 2 DAYS Resulted 09/27/17 14:35 Blood Peripheral Aerobic Blood Culture - Preliminary NO GROWTH IN 2 DAYS Resulted 09/27/17 14:35 Blood Peripheral Anaerobic Blood Culture - Preliminary NO GROWTH IN 2 DAYS Resulted 09/27/17 14:34 Nasal Aspirate Influenza Types A,B Antigen (BERONICA) - Final NEGATIVE FOR FLU A AND B ANTIGEN.... Complete 09/27/17 16:30 Urine Catheterized Urine Urine Culture - Final 50-100,000 CFU/ML MIXED LATASHA... Complete Imaging Last Impressions Renal Ultrasound 09/28/17 0000 Signed Impressions: Service Date/Time: Thursday, September 28, 2017 10:50 - CONCLUSION: 1. 5 cm parapelvic cyst in the left kidney. 2. Otherwise negative. No hydronephrosis. Chuck Winslow MD Chest X-Ray 09/27/176 Signed Impressions: Service Date/Time: Wednesday, September 27, 2017 14:25 - CONCLUSION: Normal examination. Jake Gurrola MD Abdomen/Pelvis CT 09/27/176 Signed Impressions: Service Date/Time: Wednesday, September 27, 2017 16:00 - CONCLUSION: Large left renal cyst otherwise unremarkable CT scan of the abdomen and pelvis. Surgical throughout the lower retroperitoneum and pelvis. No concerning mass Jake Gurrola MD Physical Exam GENERAL: awake and alert, not in respiratory distress. SKIN: Warm and dry. No generalized rash, no ecchymoses and no evidence of embolic lesions. HEAD: Atraumatic. Normocephalic. No temporal wasting, or tenderness. EYES: [place] conjunctiva. No petechia or hemorrhage. Pupils equal, round and reactive to light. Extraocular movements full and intact. No scleral icterus. No injection or drainage. EARS, NOSE AND THROAT: Nose without bleeding or purulent nasal discharge. No sinus tenderness. Mucous membranes pink and moist. No oral lesions noted. No exudate. No oral thrush. NECK: Trachea midline. Supple and not tender, no meningeal signs CARDIOVASCULAR: Regular rate and rhythm. No murmurs, rubs or gallops heard RESPIRATORY: Clear to auscultation. Breath sounds equal bilaterally. No rales , wheezing or rhonchi ABDOMEN: Soft, nondistended, not tender, no guarding or rebound. Bowel sounds present and normoactive. No organomegaly. BACK: No spine tenderness, no CVA tenderness EXTREMITIES: No clubbing, cyanosis, or edema. No joint effusion, has good ROM. No calf tenderness. Well perfused and warm. NEUROLOGICAL: Awake and alert. Cranial nerves grossly intact. Motor grossly within normal limits. PSYCHIATRIC: Normal affect, calm and cooperative. LINE: No evidence of infection Assessment & Plan Remarks IMPRESSION Febrile illness, with ne flank pain, (+) UA, likely - no hydro on CT, but has the cyst L kidney - no stone seen - flank pain gone Neutropenia due to sepsis, worsening - ?viral Hx kidney stones, none seen on imaging studies RECOMMENDATION Continue IV Zosyn Follow C/S Follow CBC Follow temps Monitor progress If no fever and improving, 7 days Levaquin for the pyuria D/W Dr Bia Davis Explained plan to the patient I will be OOT 09/30-10/05 If needed other ID MD covering in my absence Elda Dowd MD Sep 29, 2017 14:15
[2017-09-29 15:34] LABS: BACTERIA, URINE OCC /hpf; BLOOD, URINE SMALL (NEG); COMMENT (UR) CULTURE INDICATED; CULTURE IF INDICATED CULTURE INDICATED; GLUCOSE,URINE NEG (NEG); KETONE, URINE NEG (NEG); NITRITE,URINE NEG (NEG); PH, URINE 6.5 (5.0-8.5); SQUAMOUS EPITHELIAL CELL URINE <1 /hpf (0-5); URINE COLOR YELLOW (YELLW/STRAW)
[2017-09-29] MEDS: ENOXAPARIN SODIUM 40 MG/0.4 ML SYRINGE SQ SCH (17:56)
[2017-09-29] MEDS: ONDANSETRON HCL 4 MG/2 ML VIAL IVP PRN (17:57)
[2017-09-30] VITALS (12 sets, daily range): BP systolic 116–177; BP diastolic 56–85; PULSE 60–76; RESP 16–20; TEMP 98.2–99.2; O2SAT 97–98
[2017-09-30] MEDS: PIPERACIL-TAZO 3.375 GM PREMIX 50 ML IV SCH ×4 (05:39→22:51)
--- NOTE | 2017-09-30 08:41 | HHI.PR ---
Subjective Remarks Follow-up for infection Patient just got out of bed she stated that she feels very dizzy. Denying abdominal pain. Denies any urinary symptoms. She remains afebrile. Her nurse is at the bedside. Discussed case with patient's nurse. Objective Vitals Vital Signs Date Time Temp Pulse Resp B/P (MAP) Pulse Ox O2 Delivery O2 Flow Rate FiO2 09/30/17 07:44 98.3 61 16 116/60 (78) 97 09/30/17 04:21 98.8 60 20 133/62 (85) 98 09/30/17 04:00 61 09/30/17 00:14 99.2 63 20 136/62 (86) 97 09/30/17 00:00 66 09/29/17 21:24 98 Nasal Cannula 2.00 09/29/17 20:21 99.4 67 20 125/60 (81) 95 09/29/17 20:00 74 09/29/17 18:08 99.7 80 18 157/70 (99) 94 09/29/17 11:49 96.9 67 18 133/58 (83) 95 I/O 09/29/17 09/29/17 09/29/17 09/30/17 09/30/17 09/30/17 06:59 14:59 22:59 06:59 14:59 22:59 Intake Total 100 ml Balance 100 ml IV Total 100 ml # Voids 3 3 # Bowel Movements 0 Result Diagram: 09/29/17 0503 09/29/17 0500 Objective Remarks GENERAL: In no acute distress but does look ill SKIN: Warm and dry. HEAD: Normocephalic. EYES: No scleral icterus. No injection or drainage. NECK: Supple, trachea midline. No JVD or lymphadenopathy. CARDIOVASCULAR: Regular rate and rhythm without murmurs, gallops, or rubs. RESPIRATORY: Breath sounds equal bilaterally. No accessory muscle use. GASTROINTESTINAL: No tenderness to palpation. Nondistended. Negative for any peritoneal signs. Normoactive bowel sounds. Medications and IVs Current Medications Ketorolac Tromethamine (Toradol Inj) 30 mg ONCE ONCE IV PUSH Last administered on 09/27/17t 14:30; Start 09/27/17 at 14:30; Stop 09/27/17 at 14 :31; Status DC Sodium Chloride 1,000 ml @ 999 mls/hr BOLUS ONCE IV Last administered on 14:30; Start 09/27/17 at 14:30; Stop 09/27/17 at 15:30; Status DC Aspirin (Aspirin Chew) 162 mg ONCE ONCE CHEW Last administered on 09/27/17 16:45; Start 09/27/17 at 16:45; Stop 09/27/17 at 16:46; Status DC Ceftriaxone Sodium 1000 mg/ Sodium Chloride 100 ml @ 200 mls/hr ONCE ONCE IV Last administered on 09/27/17 17:29; Start 09/27/17 at 17:15; Stop 09/27/17 at 17:44; Status DC Morphine Sulfate (Morphine Inj) 4 mg ONCE ONCE IV PUSH Last administered on 17:29; Start 09/27/17 at 17:15; Stop 09/27/17 at 17:16; Status DC Ondansetron HCl (Zofran Inj) 4 mg ONCE ONCE IV PUSH Last administered on 09/27 17:29; Start 09/27/17 at 17:15; Stop 09/27/17 at 17:16; Status DC Amlodipine Besylate (Norvasc) 10 mg DAILY PO Last administered on 09/29/17 09 :44; Start 09/28/17 at 09:00 Non-Formulary Medication 40 mg BID PO ; Start 09/27/17 at 21:00; Status UNV Sodium Chloride (NS Flush) 2 ml UNSCH PRN IV FLUSH FLUSH AFTER USING IV ACCESS ; Start 09/27/17 at 18:00 Sodium Chloride (NS Flush) 2 ml BID IV FLUSH Last administered on 09/29/17 09 :44; Start 09/27/17 at 21:00 Acetaminophen (Tylenol) 650 mg Q4H PRN PO TEMP > 100.4 Last administered on 04:20; Start 09/27/17 at 18:00 Ondansetron HCl (Zofran Inj) 4 mg Q6H PRN IVP NAUSEA OR VOMITING Last administered on 09/28/17 17:29; Start 09/27/17 at 18:00 Temazepam (Restoril) 15 mg HS PRN PO INSOMNIA Last administered on 09/27/17 21:32; Start 09/27/17 at 18:00 Enoxaparin Sodium (Lovenox Inj) 40 mg Q24H SQ Last administered on 09/29/17 17:56; Start 09/27/17 at 18:00 Naloxone HCl (Narcan Inj) 0.4 mg UNSCH PRN IV PUSH SEE LABEL COMMENTS; Start 09/27/17 at 18:00 Senna/Docusate Sodium (Rozina-Colace) 1 tab BID PO Last administered on 09:44; Start 09/27/17 at 21:00 Magnesium Hydroxide (Milk Of Magnesia Liq) 30 ml Q12H PRN PO Mild constipation ; Start 09/27/17 at 18:00 Sennosides (Senokot) 17.2 mg Q12H PRN PO Moderate constipation; Start at 18:00 Bisacodyl (Dulcolax Supp) 10 mg DAILY PRN RECTAL SEVERE CONSITIPATION; Start 09/27/17 at 18:00 Lactulose (Lactulose Liq) 30 ml DAILY PRN PO SEVERE CONSITIPATION; Start 09/27 at 18:00 Ceftriaxone Sodium 1000 mg/ Sodium Chloride 100 ml @ 200 mls/hr Q24H IV ; Start 09/27/17 at 18:00; Status Cancel Morphine Sulfate (Morphine Inj) 2 mg Q4H PRN SQ pain 2-10; Start 09/27/17 at 18:00; Stop 09/27/17 at 22:57; Status DC Ceftriaxone Sodium 1000 mg/ Sodium Chloride 100 ml @ 200 mls/hr Q24H IV ; Start 09/27/17 at 18:30; Status Cancel Ceftriaxone Sodium 1000 mg/ Sodium Chloride 100 ml @ 200 mls/hr Q24H IV ; Start 09/28/17 at 18:00; Stop 09/28/17 at 18:00; Status DC Lisinopril (Prinivil) 40 mg BID PO Last administered on 09/29/17 21:14; Start 09/27/17 at 21:00 Sodium Chloride 1,000 ml @ 84 mls/hr [id number] IV Last administered on 21:15; Start 09/27/17 at 21:00 Morphine Sulfate (Morphine Inj) 2 mg Q4H PRN IV PUSH pain 2-10 Last administered on 09/28/17 17:20; Start 09/28/17 at 02:00 Ceftriaxone Sodium 2000 mg/ Sodium Chloride 100 ml @ 200 mls/hr Q24H IV Last administered on 09/28/17 17:49; Start 09/28/17 at 18:00; Stop 09/29/17 at 11 :00; Status DC Piperacillin Sod/ Tazobactam Sod 50 ml @ 100 mls/hr Q6H IV Last administered on 09/30/17 05:39; Start 09/29/17 at 11:00 A/P Assessment and Plan 66-year-old female who presented with severe bilateral flank pain radiating to the abdomen and fevers Concerning for pyelonephritis -UA +, continues to spike fever, severe bilateral flank pain. CT scan of the abdomen/pelvis significant for large left renal cyst. Renal ultrasound confirms left renal cyst otherwise negative. Urine culture so far negative. -Rocephin was discontinued. On Zosyn per infectious disease. -Patient continues to improve. Currently on Zosyn. Infectious disease recommends upon discharge Levaquin. Dizziness -May be secondary to patient's illness and being bedridden for about 3 days. Will check orthostatics. Patient told to sit in chair more today. Consult physical therapist. Atypical chest pain, resolved. -During my interview she complained of CVA tenderness not chest pain. EKG reviewed showed no acute ST changes. -Troponins are mildly elevated and stable. -Patient on aspirin. Neutropenia -Most likely secondary to infectious etiology. Continue to monitor. Clinically she is doing better. DVT prophylaxis -On Lovenox. Lovely Davis MD Sep 30, 2017 08:41
[2017-09-30] MEDS: SODIUM CHLORIDE 0.9% FLUSH 10 ML FLUSH IV FLUSH SCH ×2 (09:00→21:00)
[2017-09-30] MEDS: LISINOPRIL 20 MG TAB PO SCH ×2 (09:37→22:51)
[2017-09-30] MEDS: DOCUSATE SODIUM 50 MG/SENNA 8.6 MG TAB PO SCH ×2 (09:37→21:00)
[2017-09-30] MEDS: SODIUM CHLOR 0.9% 1000 ML INJ 1,000 ML IV SCH ×2 (09:39→22:51)
[2017-09-30 10:16] LABS: AUTOMATED NEUTROPHIL # 1.2 TH/MM3 (1.8-7.7); BASOPHIL % 0.3 % (0.0-2.0); EOSINOPHIL % 0.7 % (0.0-4.0); HEMATOCRIT 38.1 % (35.0-46.0); HEMO FLAGS DIFF FINAL; LYMPH % 30.5 % (9.0-44.0); LYMPHOCYTE # 0.6 TH/MM3 (1.0-4.8); MEAN CELL VOLUME 91.5 FL (80.0-100.0); MEAN CORPUSCULAR HEMOGLOBIN 30.4 PG (27.0-34.0); MEAN CORPUSCULAR HGB CONC 33.2 % (32.0-36.0); MONO % 13.1 % (0.0-8.0); NEUT % 55.4 % (16.0-70.0); PLATELET COUNT 147 TH/MM3 (150-450); RED BLOOD COUNT 4.16 MIL/MM3 (4.00-5.30); RED CELL DISTRIBUTION WIDTH 13.5 % (11.6-17.2); WHITE BLOOD COUNT 2.1 TH/MM3 (4.0-11.0)
[2017-09-30 10:44] LABS: BICARBONATE 29.2 MEQ/L (21.0-32.0); POTASSIUM 3.7 MEQ/L (3.5-5.1)
[2017-09-30] MEDS: ENOXAPARIN SODIUM 40 MG/0.4 ML SYRINGE SQ SCH (17:24)
[2017-10-01 00:51] VITALS: BP 159/72; PULSE 63; RESP 18; TEMP 98.4; O2SAT 95
[2017-10-01 02:04] VITALS: O2SAT 95
[2017-10-01 04:55] VITALS: BP 158/74; PULSE 67; RESP 18; TEMP 98.3; O2SAT 95
[2017-10-01] MEDS: PIPERACIL-TAZO 3.375 GM PREMIX 50 ML IV SCH (06:41)
[2017-10-01 08:19] VITALS: PULSE 58
[2017-10-01 08:24] VITALS: BP 140/66; PULSE 58; RESP 18; TEMP 98.2; O2SAT 96
[2017-10-01] MEDS: DOCUSATE SODIUM 50 MG/SENNA 8.6 MG TAB PO SCH (09:00)
[2017-10-01] MEDS: SODIUM CHLORIDE 0.9% FLUSH 10 ML FLUSH IV FLUSH SCH (09:00)
[2017-10-01] MEDS: SODIUM CHLOR 0.9% 1000 ML INJ 1,000 ML IV SCH (09:14)
[2017-10-01] MEDS: LISINOPRIL 20 MG TAB PO SCH (09:14)
[2017-10-01] MEDS ORDERED: LEVA750T9 PO (09:56)
--- NOTE | 2017-10-01 09:57 | HHI.DCPOC ---
Discharge Care Plan Diagnosis: (1) UTI (urinary tract infection) Your Health Problems Are: Difficulty with ADL Exercise Tolerance Goals to Promote Your Health * To prevent worsening of your condition and complications * To maintain your health at the optimal level Directions to Meet Your Goals Take your medications as prescribed Follow your dietary instruction Follow activity as directed Keep your appointments as scheduled Take your immunizations and boosters as scheduled If your symptoms worsen call your PCP, if no PCP go to Urgent Care Center or Emergency Room Smoking is Dangerous to Your Health. Avoid second hand smoke Call the 24-hour hour crisis hotline for domestic abuse at Todd Ayon MD Oct 01, 2017 09:57
--- NOTE | 2017-10-01 09:57 | HHI.FF ---
Face to Face Verification Diagnosis: (1) UTI (urinary tract infection) Physical Therapy Order: Evaluate and Treat, Improve ambulation, Strength and gait training I have seen patient Oralia Caldera on 10/01/17. My clinical findings support the need for the requested home health care services because: Ltd mobility - disease progression I certify that my clinical findings support that this patient is homebound because: Unsteady gait/balance Todd Ayon MD Oct 01, 2017 09:57
[2017-10-01] MEDS ORDERED: ENALAPRILAT 1.25 MG/ML VIAL IV PUSH PRN (10:00)
--- NOTE | 2017-10-01 10:47 | HHI.DS ---
Discharge Summary Admission Date Sep 28, 2017 at 10:21 Discharge Date: Oct 01, 2017 Admitting Diagnosis atypical chest pain, elevated troponin, UTI (1) UTI (urinary tract infection) ICD Code: N39.0 - Urinary tract infection, site not specified Status: Acute Procedures none Brief History - From Admission 66-year-old female with PMH of HTN, RA, h/o nephrolithiasis presents to the emergency department for evaluation of bilateral flank pain, fever, headache, intermittent left chest pain that started this morning. She states she not feel well yesterday, but her symptoms worsened upon wakening this morning. Chest montoya was noted early in the morning today before taking her morning meds for BP. Patient also experienced n/v/ and diaphoresis. Patient denies any shortness of breath. She reports nausea vomiting associated with chest pain. No diarrhea or constipation. She denies any urinary symptoms. No dysuria, frequency, urgency. Patient does report history of nephrolithiasis, she states that she does not currently have any issues with this. Patient took Tylenol last night, but has not taken anything for fever this morning. She has history of hypertension, rheumatoid arthritis, and appendectomy. Patient rates the pain and bilateral flank area 10/10, throbbing, sharp, aching without radiation. Moderate severity. No exacerbating or alleviating factors. CBC/BMP: 09/30/17 0936 09/30/17 0935 Significant Findings Laboratory Tests Test 09/28/17 14:23 09/29/17 05:00 09/29/17 05:03 09/29/17 14:30 Troponin I 0.07 NG/ML (0.02-0.05) Calcium Level 8.1 MG/DL (8.5-10.1) White Blood Count 2.6 TH/MM3 (4.0-11.0) Red Blood Count 3.74 MIL/MM3 (4.00-5.30) Hematocrit 33.9 % (35.0-46.0) Platelet Count 140 TH/MM3 (150-450) Urine Turbidity HAZY (CLEAR) Urine Occult Blood SMALL (NEG) Urine Leukocyte Esterase LARGE (NEG) Urine RBC 4 /hpf (0-3) Urine WBC 20 /hpf (0-5) Urine Bacteria OCC /hpf (NONE) Test 09/30/17 09:35 09/30/17 09:36 10/01/17 10:30 Estimat Glomerular Filtration Rate 86 ML/MIN (>89) White Blood Count 2.1 TH/MM3 (4.0-11.0) Platelet Count 147 TH/MM3 (150-450) Monocytes (%) (Auto) 13.1 % (0.0-8.0) Neutrophils # (Auto) 1.2 TH/MM3 (1.8-7.7) Lymphocytes # (Auto) 0.6 TH/MM3 (1.0-4.8) Imaging Last Impressions Renal Ultrasound 09/28/17 0000 Signed Impressions: Service Date/Time: Thursday, September 28, 2017 10:50 - CONCLUSION: 1. 5 cm parapelvic cyst in the left kidney. 2. Otherwise negative. No hydronephrosis. Chuck Winslow MD Chest X-Ray [id number] Signed Impressions: Service Date/Time: Wednesday, September 27, 2017 14:25 - CONCLUSION: Normal examination. Jake Gurrola MD Abdomen/Pelvis CT [id number] Signed Impressions: Service Date/Time: Wednesday, September 27, 2017 16:00 - CONCLUSION: Large left renal cyst otherwise unremarkable CT scan of the abdomen and pelvis. Surgical throughout the lower retroperitoneum and pelvis. No concerning mass Jake Gurrola MD PE at Discharge GENERAL: In no acute distress but does not look ill SKIN: Warm and dry. HEAD: Normocephalic. EYES: No scleral icterus. No injection or drainage. NECK: Supple, trachea midline. No JVD or lymphadenopathy. CARDIOVASCULAR: Regular rate and rhythm without murmurs, gallops, or rubs. RESPIRATORY: Breath sounds equal bilaterally. No accessory muscle use. GASTROINTESTINAL: No tenderness to palpation. Nondistended. Negative for any peritoneal signs. Normoactive bowel sounds. No CVA tenderness Hospital Course 66-year-old female who presented with severe bilateral flank pain radiating to the abdomen and fevers Sepsis and pyelonephritis. Clinically improved. ID recommended switching Zosyn to Levaquin and patient agrees with management aware of possible tendon rupture Levaquin and Levaquin Dizziness. She is not orthostatic. Improved. Home health PT recommended Atypical chest pain, resolved. EKG without acute ST changes. Patient complained of CVA tenderness not chest pain. Troponins mildly elevated. Flat. Likely related to sepsis. Previous Stress test negative for ischemia. Continue aspirin. Outpatient follow-up Neutropenia. Likely secondary to infection/sepsis. Monitor outpatient DVT prophylaxis. On Lovenox. Pt Condition on Discharge: Stable Discharge Disposition: Disch w/ Home Health Serv Discharge Time: > 30 minutes Discharge Instructions DIET: Follow Instructions for: Heart Healthy Diet Activities you can perform: Regular-No Restrictions Activities to Avoid: Driving Follow up Referrals: PCP Follow-up - 2-3 Days New Orders: CBC WITH DIFF - 1 Week New Medications: Aspirin DR (Aspirin EC) 81 Mg Tabdr 81 MG PO DAILY for Prevent Blood Clot, #30 TAB 0 Refills Levofloxacin (Levaquin) 750 Mg Tablet 750 MG PO DAILY for Infection, #7 TAB 0 Refills Continued Medications: Amlodipine (Norvasc) 10 Mg Tab 10 MG PO DAILY for Blood Pressure Management, #30 TAB 0 Refills Atorvastatin (Atorvastatin) 40 Mg Tab 40 MG PO HS for Cholesterol Management, #30 TAB 0 Refills Lisinopril (Lisinopril) 40 Mg Tab 40 MG PO BID for Blood Pressure Management, #30 TAB 0 Refills Todd Ayon MD Oct 01, 2017 10:47
[2017-10-01 10:50] LABS: AUTOMATED NEUTROPHIL # 0.9 TH/MM3 (1.8-7.7); BASOPHIL % 0.4 % (0.0-2.0); EOSINOPHIL % 0.7 % (0.0-4.0); HEMATOCRIT 35.1 % (35.0-46.0); LYMPH % 40.1 % (9.0-44.0); LYMPHOCYTE # 0.8 TH/MM3 (1.0-4.8); MEAN CELL VOLUME 90.5 FL (80.0-100.0); MEAN CORPUSCULAR HEMOGLOBIN 30.9 PG (27.0-34.0); MEAN CORPUSCULAR HGB CONC 34.2 % (32.0-36.0); MONO % 13.8 % (0.0-8.0); PLATELET COUNT 160 TH/MM3 (150-450); RED BLOOD COUNT 3.88 MIL/MM3 (4.00-5.30); RED CELL DISTRIBUTION WIDTH 13.5 % (11.6-17.2)
[2017-10-01] MEDS ORDERED: ASPI81TA23 PO (10:50)
[2017-10-01 10:53] LABS: HEMO FLAGS AUTO DIFF
[2017-10-01 11:32] LABS: BANDS 4 % (0-6); BASOPHILS 1 % (0-2); NEUTROPHIL # MANUAL DIFF 0.8 TH/MM3 (1.8-7.7); PLASMA CELLS 1 % (0-0); PLATELET ESTIMATE SMEAR NORMAL (NORMAL); PLATELET MORPHOLOGY NORMAL (NORMAL); POLYS (SEG NEUTROPHILS) 35 % (16-70); SCAN/DIFF FINAL DIFF MANUAL; WBC DIFF SAMPLE 100
[2017-10-01 11:47] VITALS: BP 132/66; PULSE 65
== END 2017-10-01 12:28 | disposition home health service (06) | DRG 872 ==
LOC: NEPC 12:44 → NEDA 17:24 → NEPGCP 19:39 → OBSVTOIN 09-28 10:21
PROVIDERS: ADMIT Internal Medicine; ATTEND Internal Medicine
DX: A41.9 Sepsis, unspecified organism (principal); E46 Unspecified protein-calorie malnutrition; Z68.1 Body mass index [BMI] 19.9 or less, adult; N12 Tubulo-interstitial nephritis, not specified as acute or chronic; N28.1 Cyst of kidney, acquired; I10 Essential (primary) hypertension; M06.9 Rheumatoid arthritis, unspecified; E78.00 Pure hypercholesterolemia, unspecified; R07.89 Other chest pain; R42 Dizziness and giddiness; Z87.891 Personal history of nicotine dependence; Z87.442 Personal history of urinary calculi
CPT/HCPCS: 71010; 74176; 76775; 80048; 80053; 81001; 82550; 83605; 83690; 83735; 84134; 84484; 85007; 85025; 85027; 85610; 85730; 87040; 87086; 87804; 93005; 96361; 96365; 96372; 96375; 96376; G0378; J0696; J1650; J1885; J2270; J2405; J2543; J7030; P9612